=== PATIENT | female | born 1970 | race Caucasian/White ===

== ENCOUNTER 2019-07-25 09:00 | Outpatient (RCR) | payer OTHER, SELFPAY ==
--- NOTE | 2019-07-25 09:04 | BH.SGPN.GN ---
Behaviors/Verbalizations/Mental Status: []Client alert and oriented, casual dress, hygiene tended to. Eye contact good. Motor activity appropriate. Speech within normal limits. Affect congruent, mood anxious. Thoughts linear, logical, no signs of hallucinations or delusions. Reviewed client?s symptom tracker, no signs of suicidal ideation, plan, or intent as of today. Client Response/Progress/Benefit: []Pt was an active participant in group discussion, openly sharing thoughts and feelings, and appeared to listen attentively to others. Emotion for today is nervous and calm. Pt reported current stressors are being told by family that she overextends herself to accommodate others, which pt doesn't believe she is doing. Pt stated her family believes her taking care of others first was one of the causes to her going to inpatient psychiatric hospital. Pt noted reported a mental health positive is showing up to IOP despite feeling anxious. Pt reported another positive is working on being more assertive with others, instead of keeping her thoughts and feelings to herself. Pt's first day in IOP. Continued IOP tx recommended to stabilize moods, prevent decompensation, and identify and challenge distorted thoughts. Narrative Note: []
--- NOTE | 2019-07-25 10:09 | BH.SGPN.GN ---
Behaviors/Verbalizations/Mental Status: [Client alert and oriented, casually and neatly dressed and groomed. Eye contact good. Motor activity appropriate. Speech within normal limits. Affect congruent, flat, mood dysthymic. Thoughts linear, logical, no signs of hallucinations or delusions.] Client Response/Progress/Benefit: [Client was an active participant throughout, did well to engage via providing input, note-taking, and listening attentively to peers. The group discussed the quote and how the emotion anger is not good or bad, but one can respond to anger in healthy or harmful ways. Client worked with the group to define anger and its causes, as well as the internal and external impacts of anger. Provided personal example regarding how communication with her family is impacted negatively by anger. Group identified potential consequences of unhealthy management of anger to include: increased stress, loss of relationships, guilt/shame, more problems being created/potential dangerous situations, unhealthy coping habits, poor self-esteem, and worsening mental health symptoms. Client identified underlying factors of her anger which included: anxiety, feeling invalidated, feeling misunderstood, fear of judgement, and being overwhelmed/stressed. Client stated verbally lashing out, shutting down, avoidance, sarcasm, and self-deprecation are common responses she has when feeling angry. Benefited from group by increasing awareness of the negative impacts of unmanaged anger and underlying factors that contribute to personal anger. Progress noted as client reports increased self-awareness and ability to cope with stressors previously impacting mental health rather than minimizing or just shutting down. Will continue IOP tx to further increase consistent skill application and anxiety management, promote mood stability, and prevent decompensation.] Narrative Note: []
--- NOTE | 2019-07-25 11:15 | BH.SGPN.GN ---
Behaviors/Verbalizations/Mental Status: []Client alert and oriented, neatly dressed and groomed. Eye contact good. Motor activity appropriate. Speech within normal limits. Affect constricted, mood euthymic. Thoughts linear, logical, no signs of hallucinations or delusions Client Response/Progress/Benefit: []Client responded well to session, taking notes and participating in activity. Client participated in group activity and able to connect how managing anger takes patience, calming skills, and acceptance. Client reported using laughter helped client cope in the activity. Group identified the benefits of effectively managing anger which included; advocating for oneself, reducing consequences, reducing mental health symptoms, and expressing one?s needs. Client reported one can learn from past experiences to help them change how they respond to anger. Client helped the group identify coping skills to more effectively manage anger which included; deep breathing, self-compassion, taking a step back, DDD, challenging perspective, and using S.T.O.P. Client appeared to benefit from gaining coping skills to more effectively manage anger. Will continue IOP level of care to reduce depressive symptoms and improve mood stability.?
--- NOTE | 2019-07-25 15:06 | BH.COMM_ITS ---
Communication Note - Communication with Client Communication Note: Met with patient to complete intial paperwork. No sign ificant changes since pre-admission screening. Completed CSSR-screener which indicates low risk. Denies any suicidal ideations, plan, or intent. Reports passive thoughts prior to psych admission. Appears motivated. Protective factors. Smiling and cooperative.
--- NOTE | 2019-07-27 09:00 | BH.SGPN.GN ---
Behaviors/Verbalizations/Mental Status: [] Eye contact is good. Motor activity is appropriate. Appearance is neat. Speech is Appropriate. Mood is anxious. Affect is congruent. Thoughts are linear and logical. No evidence of psychosis. Reviewed daily check in sheet and no reports of suicidal ideations or intent. Client Response/Progress/Benefit: [] Pt participated at times during group discussion. Pt discussed improved communication with her family over the past couple days. Check-in was superficial however this is only her 2nd day. Reports that her first day was beneficial and she found everyone to be very friendly and non-judgemental. Progress noted. Benefited from group support, encouragement, and feedback. Will continue in IOP to prevent decompensation, provide support, and medication mgmt. Narrative Note: []
--- NOTE | 2019-07-27 10:03 | BH.SGPN.GN ---
Behaviors/Verbalizations/Mental Status: []Client alert and oriented, neatly dressed and groomed. Eye contact good. Motor activity appropriate. Speech within normal limits. Affect constricted, mood dysthymic. Thoughts linear, logical, no signs of hallucinations or delusions. Client Response/Progress/Benefit: []Client receptive of session, attentive in discussion and activity. Client discussed the quote and was often nodding to comments made by peers. Client helped group identify the consequences of not effectively managing emotions which included; strained relationships, guilt, increased negative thinking, increase mental health symptoms, and impulsive behaviors. Group identified barriers that impact one?s ability to communicate when emotions are high. These barriers included; acting on impulse, shutting down, physical aggression, assumptions, and misinterpretations. Client stated shutting down ?means nothing gets resolved.? Client participated in the activity and did well to regulate her emotions. Client reported she was fearful to take a role in the activity, but she reminded herself that ?I?m safe here.? Client appeared to benefit from increasing awareness of how emotions can impact communication and practicing in the moment coping skills. Will continue IOP tx to prevent decompensation of symptoms, improve daily functioning, and increase self-awareness.
--- NOTE | 2019-07-27 11:20 | BH.SGPN.GN ---
Behaviors/Verbalizations/Mental Status: []Client alert and oriented, neatly dressed and groomed. Eye contact good. Motor activity appropriate. Speech within normal limits. Affect congruent, mood euthymic. Thoughts linear, logical, no signs of hallucinations or delusions Client Response/Progress/Benefit: []Client attentive and contributing to discussion. Attentive during psychoeducation on 4 zones of regulation. Client able to identify how she feels in each zone as well as how she acts in each zone. Client identified when in the low energy zone she exhibits the following behaviors: increased sleep, increased smoking, complains more, crying, and increased negative self-talk. Client stated she knows she is in a regulated state when she is determined, takes pride in her appearance, feels refreshed, and feel ready to take the day on. Client shared she is in the heightened energy zone when she is less patient, quick to anger, increased negativity, restless, tense, increased rumination, increased worries, and ruminations. Client stated when in extremely heightened zone she loses control, starts more projects that she doesn't finish, and shuts down. Client also able to identify coping skills she can use to support herself in each zone which included: calling a friend, making lists, going for a walk, positive self-talk, breathing, and focusing on one task at a time. Benefited from group from increased education on zones of regulation or stages of alertness for emotions and healthy coping skills to use for each zone. Will continue IOP tx to maintain gains, prevent decompensation, and continue to learn and utilize healthy coping skills. Narrative Note: []
--- NOTE | 2019-07-27 15:20 | BH.MTP_ITS ---
[facility] Treatment Plan - Patient Information Program Physician:: Iveth Mayfield Primary Therapist:: Justina Brown - Psychiatric Diagnoses Psychiatric Diagnoses:: Schizoaffective disorder (F 25.0), anxiety disorder NOS Diagnosis Code(s):: F 25.0 - Estimated LOS Estimated LOS (in weeks):: 6 Problem/Goal #1 - Problem/Goal #1 Stated Goal:: Client will decrease depressive symptoms, isolation, and negative thinking due to Schizoaffective Disorder. Description of Barriers: Client reports a history of medication noncompliance and difficulty following through with her goals. Client states she has external support, but she struggles with utilizing internal coping skills. Client reports limited insight to her warning signs, triggers, and maintenance cycles. Client also reports low motivation, lack of energy, and isolative behaviors that could be a barrier to treatment. Functional Impact: Client is a 48-year-old female with a history of schizoaffective disorder and anxiety unspecified. Client has had several psychiatric hospitalizations with her most recent being at [facility] from 07/05/19-07/17/19. Prior to the hospitalization client had been presenting with symptoms of paranoid delusions and catatonia. Client was also presenting with disorganized thought patterns and confusion. Client endorsed erratic sleep, erratic appetite, and difficulty processing information. Client also reports she isolates and avoids. Additionally, client endorsed fleeting suicidal ideations without plan or intent, hopelessness, and increased irritability. Client's symptoms are currently impacting her ability to function at her baseline. Goal Relevant Strengths/Supports: Client presents as an intelligent, creative, and kind woman who wants to improve her mental health. 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 Client's family is supportive, and client has a best friend since middle school that she still talks to weekly. Client practices yoga and client reports receptiveness to learning new coping skills. - Objectives Objective #1 Stated Objective: Client will learn and utilize 2-3 healthy coping strategies to better manage depressive symptoms and reduce DSM-5 symptoms for depression. Interventions: Through group and individual sessions, therapist will help client identify triggers and warning signs of depression and emotional dysregulation including emotional, physical, and behavioral changes. Therapist will teach client various coping skills to manage her symptoms. Therapist will use cognitive restructuring techniques and help client gain awareness of negative thoughts that reinforce depressive cycles. Therapist will help client incorporate mindfulness, opposite action, and goal setting. Discharge Criteria: Client will have met this goal when she can report learning and using at least 2 coping skills to manage depressive symptoms and her DSM-5 scores for depression have decreased. Target Date: 09/05/19 Review Date: 08/24/19 Status: open Objective #2 Stated Objective: Client will increase social activity to at least one additional activity per week to increase social engagement and sense of purpose as well as reduce depressive symptoms as shown by a decrease in DSM-5 cross-cutt ing score. Interventions: Therapist will help client explore social connection opportunities, and process ways to get the most out of the experience. Therapist will help client set small weekly goals and encourage client to keep track of her progress. Therapist will provide education on maintenance cycles for depression and help client learn how to break unhealthy maintenance cycles. Discharge Criteria: Client will have achieved this objective when can report attending at least one social activity of interest weekly and her DSM-5 scores for depression have decreased. Target Date: 09/05/19 Review Date: 08/24/19 Status: open Problem/Goal #2 - Problem/Goal #2 Stated Goal:: Client will reduce overall frequency, intensity, and duration of paranoia and anxiety so that daily functioning is not impaired. Description of Barriers: Client reports a history of medication noncompliance and difficulty following through with her goals. Client states she has external support, but she struggles with utilizing internal coping skills. Client reports limited insight to her warning signs, triggers, and maintenance cycles. Client also reports low motivation, lack of energy, and isolative behaviors that could be a barrier to treatment. Functional Impact: Client is a 48-year-old female with a history of schizoaffective disorder and anxiety unspecified. Client has had several psychiatric hospitalizations with her most recent being at [facility] from 07/05/19-07/17/19. Prior to the hospitalization client had been presenting with symptoms of paranoid delusions and catatonia. Client was also presenting with disorganized thought patterns and confusion. Client endorsed erratic sleep, erratic appetite, and difficulty processing information. Client also reports she isolates and avoids. Additionally, client endorsed fleeting suicidal ideations without plan or intent, hopelessness, and increased irritability. Client's symptoms are currently impacting her ability to function at her baseline. Goal Relevant Strengths/Supports: Client presents as an intelligent, creative, and kind woman who wants to improve her mental health. 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 Client's family is supportive, and client has a best friend since middle school that she still talks to weekly. Client practices yoga and client reports receptiveness to learning new coping skills. - Objectives Objective #1 Stated Objective: Client will identify 2-3 anxiety and paranoia triggers and 2 healthy calming coping skills to use when feeling anxious to reduce anxiety as shown by decreased DSM-5 cross-cutting score. Interventions: Therapist will help client increase awareness of cognitive distortions, paranoia triggers, and physical warning signs of anxiety. Therapist will encourage client to focus on stressors in her control and teach client calming and mindfulness techniques. Therapist will CBT-based strategies to help client learn how to more effectively manage and cope with her anxiety and paranoia. Therapist will encourage client to utilize reality checking with her supports when she is feeling paranoid. Discharge Criteria: Client will have accomplished this goal when can report at least 2 triggers for anxiety and state using 2 calming strategies to manage symptoms. Additionally, client will have accomplished this goal when her DSM-5 cross-cutting scores show a decrease in anxiety. Target Date: 09/05/19 Review Date: 08/24/19 Status: open Objective #2 Stated Objective: Client will identify 2-3 cognitive distortions that lead to rumination and learn 2-3 ways to manage these thoughts to better manage anxiety. Interventions: Therapist will provide education on the most common cognitive distortions and teach client the connection between thoughts, emotions, and feelings. Therapist will assist client in identifying, challenging, and replacing dysfunctional thoughts with positive, more realistic thoughts. Therapist will use CBT and DBT techniques to help client gain awareness of thinking errors and learn how to more effectively handle negative thoughts. Discharge Criteria: Client will have accomplished this goal when can identify at least 2 cognitive distortions and at least 2 coping skills to manage negative thoughts. Target Date: 09/05/19 Review Date: 08/24/19 Status: open
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
--- NOTE | 2019-07-27 15:27 | BH.MDN ---
Multi-Disciplinary Note - Note 30-min Individual Time Started:: 12:30 Date: 07/27/19 Purpose of session/treatment goals addressed:: The purpose of this session was to gather information on client's current stressors, symptoms, and treatment goals. Another goal was to build rapport. Eye Contact:: Good Motor Activity:: Appropriate Appearance:: Neat Speech:: Appropriate Mood:: Anxious Affect:: Constricted Thoughts:: Linear, Logical, No evidence of hallucinations/delusions noted Staff Interventions:: Therapist used active listening and open-ended questions to explore client's current stressors, symptoms, and treatment goals. Therapist used strengths perspective to build rapport and help client identify personal resilience factors. Therapist provided psychoeducation on maintenance cycles and depression. Client Response:: Client responded well to session, receptive to meeting with therapist. Client shared her first week of IOP went well, she states feeling ?open and hopeful.? Client stated she was recently hospitalized, but she is starting to feel better. Client declined to go into detail about what precipitated her hospitalization, but she reported she is currently struggling with depressive symptoms. Per client?s H/P she has a history of paranoid delusions and catatonia. Client does not present with those symptoms currently. Client reported she gets stuck in ?patterns? of depression and she wants to work on preventing those from happening as frequently. Client stated she wants to improve her boundaries with others, increase self-care, and learn better ways to cope with her mental health symptoms. Client receptive to psychoeducation on depressive maintenance cycles. Risks/Concerns:: Client denies any suicidal ideations, plan, or intent as of 07/27/19. Future oriented throughout session. Progress Toward Goals/Plan:: Client's second day in IOP, no progress to document. Client reports she is open to the program and feels hopeful. Client currently endorses a depressed mood, anhedonia, difficulty concentrating, and difficulty processing information. History of paranoid delusions and catatonia, but no current presentation of symptoms. Client identified her treatment goals to be better boundaries at home, reducing depressive symptoms and maintenance cycles, and better self-care. Will continue tx to prevent further decompensation, improve daily functioning, and increase healthy coping skills. Time Stopped:: 12:50
--- NOTE | 2019-07-31 09:01 | BH.SGPN.GN ---
Behaviors/Verbalizations/Mental Status: []Client alert and oriented, casual dress, hygiene tended to. Eye contact good. Motor activity appropriate. Speech within normal limits. Affect congruent, mood anxious. Thoughts linear, logical, no signs of hallucinations or delusions. Reviewed client?s symptom tracker, no signs of suicidal ideation, plan, or intent as of today. Client Response/Progress/Benefit: []Pt was an engaged participant in group discussion, providing input and openly processing with the group. Emotion for today is trepidatious. Pt reported current stressor is being unsure if her medication is causing her to be sleepy or if she is using it as an excuse to stay in bed. Pt stated she stayed in bed for 15 hours on Tuesday because felt fatigued all day and struggled with getting out of bed. 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 Pt stated her encouraged her to go to hockey last night and she reminded herself how it will improve her mood. Progress noted in application of positive self-talk to manage depressive thought patterns. continued IOP tx recommended to stabilize moods, prevent decompensation, and learn healthy coping skills. Narrative Note: []
--- NOTE | 2019-07-31 10:13 | BH.SGPN.GN ---
Behaviors/Verbalizations/Mental Status: []Client alert and oriented, neatly dressed and groomed. Eye contact good. Motor activity appropriate. Speech slow. Affect flat, mood depressed. Thoughts loosely associated at times. No signs of hallucinations or delusions. Client Response/Progress/Benefit: []client engaged throughout group discussion and activity. Contributed to discussion on quote of the day as she shared ?we need the manifestation of change.? Client asked the group ?how do we know if we grow?? The group helped client gain awareness of the benefits of goal setting and reflection to measure growth. Group worked together to come up with common negative forces in life which can hold them back from growth. These included; toxic relationships, negative thoughts, cognitive distortions, lack of self-care, and trauma. Group then worked together to identify common positive forces which help us grow. These included; healthy coping skills, positive support, self-care, patience, realistic and positive thinking, and self-awareness. Client was attentive during psychoeducation on the importance of utilizing many forces to help one grow. Benefited from group with increased insight and awareness on the impact of negative and positive forces on mental wellness.
--- NOTE | 2019-08-01 08:43 | BH.COMM_ITS ---
Communication Note - Communication with Client Communication Note: Was scheduled to see psychiatry today however was unable to make it in to [facility]. Pt saw outpatient psychiatrist Dr. Aguayo on 07/20/19 and was recent seen by psychiatry while at [facility] within 30 days. No immediate concerns for medication.
--- NOTE | 2019-08-02 09:10 | BH.SGPN.GN ---
Behaviors/Verbalizations/Mental Status: [] Eye contact is good. Motor activity is appropriate. Appearance is casual. Speech is Appropriate. Mood is depressed. Affect is flat. Thoughts are linear and logical. No evidence of psychosis. Reviewed daily check in sheet and no reports of suicidal ideations or intent. Reviewed daily symptom tracker. Client Response/Progress/Benefit: [] Pt was an active participant in group discussion. Emotion for today is adequate. Talked at length about boundary setting with family. Gave several examples and believes that she is currently more assertive with others and is pushing back. Often she feels pressured to shared her thoughts and she does not want to disclose what has been occurring in the past month with certain family members. Progress noted. Benefited from group support, feedback, and encouragement. Will continue in IOP to prevent decompensation, increase healthy coping, and provide support. Narrative Note: []
--- NOTE | 2019-08-02 10:10 | BH.SGPN.GN ---
Behaviors/Verbalizations/Mental Status: []Client alert and oriented, neatly dressed and groomed. Eye contact good. Motor activity appropriate. Speech within normal limits. Affect constricted, mood anxious. Thoughts linear, logical, no signs of hallucinations or delusions. Client Response/Progress/Benefit: []Client active participant as shown by client?s attentiveness during discussion and engagement in activity. Client agreed with peers that self-care is important because without it one cannot effectively give to others or function at baseline. Client reported having time for herself would make her feel uncomfortable, but she was able to see the long-term benefits of self-care. Client attentive in the discussion of the common myths about self-care including self-care is selfish, self-indulgent, take too much time, and is always fun. Client gave examples of self-care activities such as setting boundaries, taking medication, going to therapy, and admitting one needs help. Client engaged in activity and able to connect how sometimes to make self-care a priority, a person must set boundaries in other areas of their lives. Client seemed to benefit from increased awareness of the importance of self-care. Client showing progress as shown by her report of increased insight and gaining skills. Continues to struggle with managing symptoms and setting boundaries.
--- NOTE | 2019-08-02 11:15 | BH.SGPN.GN ---
Behaviors/Verbalizations/Mental Status: [Client alert and oriented, neat and casually dressed and appropriately groomed. Eye contact good. Motor activity appropriate. Speech within normal limits, at times rambling. Affect congruent, mood depressed. Thoughts linear, logical, no signs of hallucinations or delusions. ] Client Response/Progress/Benefit: [Pt responded well to session, actively listening and willing participant in both discussion and worksheet activity. Worked with the group to further process the activity and discussion on the importance of self-care in management mental health and preventing burnout. Pt engaged in the discussion and self-assessment of the different areas of self-care, noting she has struggled with physical and emotional components of self-care and has previously stopped taking her medications or avoided healthy activities out of stubbornness or not wanting to have to take them. Pt reports connecting with discussion on the mental health effects of not making self-care a priority. Pt set a goal to improve in the area of psychological and social self-care by improving knowledge of and ability to use healthy communication skills with supports. Pt appeared to benefit from increasing awareness of how she can improve self-care balance. Pt progress noted in pt ability to identify impact current lack of self-care activities has had on mental health and maintaining depression. Recommended continued IOP to continue to reduce depression, improve emotion regulation and self-care skills, and prevent decompensation.] Narrative Note: []
--- NOTE | 2019-08-03 09:02 | BH.SGPN.GN ---
Behaviors/Verbalizations/Mental Status: []Client alert and oriented, casual dress, hygiene tended to. Eye contact good. Motor activity appropriate. Speech within normal limits. Affect constricted, mood dysthymic and anxious. Tangential at times, easily redirected. No signs of hallucinations or delusions. Reviewed client?s symptom tracker, no signs of suicidal ideation, plan, or intent as of today. Client Response/Progress/Benefit: []Pt was an engaged participant in group discussion, providing input and listened attentively to peers. Emotion for today is discombobulated. Pt initially struggled with identifying mental health positive or progress. With assistance pt noted mental health positive as changing her routine this morning to engaging with pets instead of ruminating until someone else in the house wakes up. Pt stated she could recognize her mood was improved by using positive distraction instead of sitting around doing nothing until others woke up. Pt reported current stressor is feeling discombobulated because has several upcoming doctor appointments which she stated increases her anxiety at times. Progress noted in application of using opposite action this morning instead of doing the same behavior that has maintained depressed state. Continued IOP tx recommended to maintain gains, prevent decompensation, and continue to improve emotion regulation skills. Narrative Note: []
--- NOTE | 2019-08-03 10:18 | BH.SGPN.GN ---
Behaviors/Verbalizations/Mental Status: [Client alert and oriented, neat and casual dress, hygiene tended to. Eye contact good. Motor activity appropriate. Speech within normal limits, at times rambling. Affect congruent, mood euthymic. Thoughts linear, logical, no signs of hallucinations or delusions. ] Client Response/Progress/Benefit: [Pt receptive of session, engaged throughout. She did well to work with the group to reflect on the quote and discussed the ways in which perspective can impact mental health and ability to make personal progress in life. Pt indicated that individual attitude and culture can impact perspective and lead to increased negativity. Expressed that a positive perspective can reduce use of self-deprecating or negative thoughts. Pt did well to engage in the challenge activity and was an active participant in identifying how perspective impacted ability to complete the task at hand. Pt appeared to benefit from increasing understanding of mental health benefits of a positive perspective and potential consequences to progress when perspective is negative or pessimistic. Pt progress noted in her ability to better manage stressors and report of increased socialization. Recommended continued IOP tx to promote continued progress, further promote application of skills learned, and prevent decompensation.] Narrative Note: []
--- NOTE | 2019-08-03 11:15 | BH.SGPN.GN ---
Behaviors/Verbalizations/Mental Status: []Client alert and oriented, neatly dressed and groomed. Eye contact good. Motor activity appropriate. Speech within normal limits. Affect flat, mood irritable. Thoughts linear, logical, no signs of hallucinations or delusions. Client Response/Progress/Benefit: []Client responded well to session, attentive and participating in discussion. Group discussed the mental health benefits of recognizing strengths which included; improved self-esteem, better relationships, and increased resilience. Client reported knowing her strengths helps client be more optimistic. Group identified the barriers that have prevented them from acknowledging their strengths and successes. These barriers included; negative thoughts, self-depreciation, mistaken beliefs, and not feeling allowed to acknowledge strengths. Group identified strategies to overcome barriers that prevent them from seeing strengths. These strategies included; keeping track of progress, practicing self-compassion, and challenging distortions. Client able to identify personal strengths she possesses which included; being open-minded, patience, and being curious. Appeared to benefit from recognizing personal strengths and identifying strategies to overcome barriers. Will continue IOP tx to prevent decompensation, increase use of healthy coping skills, and promote medication compliance.
--- NOTE | 2019-08-03 13:57 | BH.MDN ---
Multi-Disciplinary Note - Note 45-min Individual Time Started:: 12:15 Date: 08/03/19 Purpose of session/treatment goals addressed:: The purpose of this session was to gather information on client's current stressors, symptoms, and triggers. Another goal was to provide psychoeducation on symptoms and teach client coping skills. Other topics included; support and communication. Eye Contact:: Good Motor Activity:: Appropriate Appearance:: Neat Speech:: Tangential, Other - slow speech Mood:: Euthymic Affect:: Congruent Thoughts:: Other - loose associations at times., No evidence of hallucinations/delusions noted Staff Interventions:: Therapist used active listening and open-ended questions to gather information on client?s current stressors, symptoms, and triggers. Therapist explored symptoms that are causing client the most distress and helped client identify healthy coping skills to better manage these symptoms. Therapist provided psychoeducation on depression and maintenance cycles. Therapist discussed the benefits of communicating with support. Therapist gave client homework to fill out a coping skill tracker. Client Response:: Client responded well to session, open to meeting with therapist. Client shared she looks forward to meeting with the psychiatrist because she continues to feel restless. Client reported she is also struggling with racing thoughts and not knowing what to do to stay busy. Client shared when this happens, she tends to isolate and sleep which reinforces her depression. Client receptive to psychoeducation on symptoms and maintenance cycles. Client reported she currently only uses distraction coping skills to manage her depression and restlessness. Client shared this helps some of the time because it gives her a sense of accomplishment, but it does not solve my problems. Client receptive to learning different types of coping skills besides distraction such as emotional release, self-love, thought challenging, and mindfulness. Client willing to use a coping skill tracker over the weekend to help client see how different coping skills impact her mood. Client also shared she wants to communicate better with her supports to avoid distorted thoughts and unfair assumptions about client's mental health. Risks/Concerns:: Client denies any suicidal ideations, plan, or intent as of 08/03/19. Progress Toward Goals/Plan:: Client appears to be demonstrating progress as evidenced by her report of increased awareness and report of medication compliance. Client reports current symptoms of increased restlessness and fatigue. Client stated over the weekend she slept for 15 hours one day. Client also reports difficulty concentrating, anhedonia, and poor internal emotional regulation skills. Will continue tx to prevent further decompensation, improve daily functioning, and increase healthy coping skills. Time Stopped:: 12:56
--- NOTE | 2019-08-07 09:02 | BH.SGPN.GN ---
Behaviors/Verbalizations/Mental Status: []Client alert and oriented, neatly dressed and groomed. Eye contact good. Motor activity appropriate. Rambling speech. Affect congruent, mood anxious. Thoughts circular no signs of hallucinations or delusions. Reviewed client?s symptom tracker, no risk for suicidal ideation, plan, or intent as of 08/07/19. Client Response/Progress/Benefit: []Client responded well to session, engaged and providing supportive statements to peers. Client reports feeling ?ambivalent? today. Client reported her place of employment may be closing due to lack of funding, so client may have to find a new job. Client shared she does not know what she would want to do ?but I want it to have purpose, not just a paycheck.? Client able to acknowledge that she has various skills that can benefit her in the workforce. Client reported even though there?s uncertainty with her job, the community has been very supportive which gives client hope. Client stated she has started journaling again which has been helpful for her mental health. Client appeared to benefit from connecting with peers and processing her ambivalence. Client progressing as shown by her decreased paranoia, however, client continues to struggle with apathy and other depressive symptoms. Will continue IOP tx to prevent decompensation and increase application of healthy coping skills.
--- NOTE | 2019-08-07 10:10 | BH.SGPN.GN ---
Behaviors/Verbalizations/Mental Status: [] Eye contact is good. Motor activity is appropriate. Appearance is casual. Speech is Appropriate. Mood is depressed. Affect is flat. Thoughts are linear and logical. No evidence of psychosis. Client Response/Progress/Benefit: [] Pt was an active participant in group activity, however did not provide much insight during discussion. Pt was quiet however attentive when peers came up with a definition for coping which was how we deal with problems that we encounter. Group noted that coping skills can be healthy and unhealthy. Quiet but attentive as group worked together to identify unhealthy coping skills which included; substance abuse, avoiding, isolating, lashing out, self-harm, over-thinking, spending money, eating, and escaping reality through TV/games. Group began to identify ways to break the cycle of unhealthy coping skills which included; awareness, addressing issues, and learning healthy ways to cope. Pt was an active participant in her small group Narrative Note: []
--- NOTE | 2019-08-07 11:15 | BH.SGPN.GN ---
Behaviors/Verbalizations/Mental Status: []Pt alert and oriented, eye contact good, casually dressed, motor activity appropriate, speech normal rate and tone, mood dysthymic, constricted affect, thoughts linear and intact, no evidence of delusions or hallucinations. Client Response/Progress/Benefit: []Client listened attentively to peers and contributed thoughts during discussion. Client appeared to connect with the activity from second group and helped the group identify benefits of having a strong foundation of internal and external coping skills. Client helped the group discuss the different categories of coping skills and provided examples. Client agreed with peers it's important to use variety of coping skills. Client created a coping skills ?menu? from the five categories of coping skills. Client selected pampering self, self-care, and challenging thoughts as her coping skills to try. Client appeared to benefit from increasing her repertoire of healthy coping skills. Progress noted in client?s ability to challenge negative thought patterns. Will continue IOP to promote gains, mood stability and prevent decompensation. Narrative Note: []
--- NOTE | 2019-08-07 14:04 | BH.MDN_ITS ---
Multi-Disciplinary Note - Note 45-min Individual Time Started:: 12:20 Date: 08/07/19 Purpose of session/treatment goals addressed:: The purpose of this session was to address client's current symptoms, stressors, and application of coping skills. Another goal was to challenge negative thinking that reinforces depressive maintenance cycles. Other topics included; self-care and habit- stacking. Eye Contact:: Good Motor Activity:: Appropriate Appearance:: Neat Speech:: Tangential, Rambling Mood:: Dysthymic Affect:: Congruent Thoughts:: Circular, No evidence of hallucinations/delusions noted Staff Interventions:: Therapist used active listening and open-ended questions to explore client's current stressors, symptoms, and triggers. Therapist provided psychoeducation and helped client gain awareness of how her behaviors impact her emotions. Therapist taught client about habit-stacking and helped client set a goal to incorporate yoga into her morning routine. Therapist gently challenged client's distortions and reframe her thinking. Client Response:: Client responded well to session, receptive to meeting with therapist and being redirected at times. Client stated she is feeling a little low today as she continues to experience low motivation and restlessness. Client reported right now she is coping with her restlessness by laying on the couch which makes client feel guilty. Client able to recognize that her guilt then reinforces depression and low motivation. Receptive to psychoeducation and identifying alternative approaches to coping with her restlessness. Client reported she finds benefits from yoga, but she is not consistent with doing yoga. Client identified her barriers preventing client from being consistent which included; interruptions, guilt, and time. Client able to problem solve her barriers and habit-stacking. Client shared doing yoga as part of her morning routine would be a good option as she would have the time and feel less guilty. Client and therapist discussed the benefits of opposite action and creating positive momentum. Risks/Concerns:: Client denies any suicidal ideations, plan, or intent as of 08/07/19. Future oriented throughout session. Progress Toward Goals/Plan:: Client appears to be demonstrating progress as evidenced by her report of medication compliance and increased awareness of how her behaviors impact emotions. However, client reports difficulty with consistently applying coping skills and she did not complete homework from last session. Client continues to report restlessness, low motivation, and fatigue. Client acknowledges that isolating and sleeping only reinforces her low motivation. Client receptive to habit stacking and trying to do yoga in the mornings to promote more consistent application. Will continue tx to prevent further decompensation, improve daily functioning, and increase healthy coping skills. Time Stopped:: 13:12
--- NOTE | 2019-08-08 09:40 | BH.NA ---
Physical Data - Height/Weight Height: 1.69 m Weight:: 95.254 kg Weight in Pounds: 210.0 lbs Current Medication Compliance - Medication Compliance Do you take your medication as prescribed?: Yes Do you need assistance with taking medication?: No Have you had side effects from medication?: No Nutritional History - Appetite Nutritional Instructions:: If client shows signs of a swallowing problem, weight change of 10 pounds or more in the last month, or is on a diabetic diet, the physician will review and request a dietitian consult, as appropriate. All unintentional weight loss will be referred to the physician for decision on need for dietitian consult. Describe your appetite:: Good Have you noticed a change in your eating habits lately?: No Functional Assessment - Sleep Pattern Describe any problems with sleeping: Client describes her sleeping as widely variable; sometimes has difficult falling and staying asleep, other times she can sleep for 16 hours straight. - Activities Motor Activity:: Functional Sensory/Communication Assess - Hearing Problems Do you have any hearing problems?: Adequate - Communication Problems Do you have difficulty understanding what people are saying?: No Do you have trouble putting your thoughts into words or expressing what you want to say?: No Do people ever have trouble understanding what you say?: No What is your primary language?: Serbian Learning Assessment - Learning Barriers Learning Barriers:: Ready to learn Medical Problems/History - Pain Assessment Do you have acute or chronic pain?: No - Female Reproductive Do you think you may be ?: No Number of pregnancies:: 4 Number of children:: 4 Have you reached menopause?: No Do you have any history of breast disease?: No Substance Abuse - Substance Abuse Please describe substance abuse in the last 30 days:: Occassional ETOH use. 1ppd cigarette smoker. Past marijuana use. Mental Status Summary - Mental Status Significant Findings/Observations on Appearance and Mood:: Hien is A&Ox4, cooperative with interview, and makes fair eye contact. Speech is clear, monotone, and of normal volume. Mild anxiety and depression. Flat affect. Often makes strange, off-topic comments, but is redirectable. No symptoms of delusions. Unclear of hallucinations. Denies SI and HI. Interview was difficult given client's tendency to derail from the topic or line of questioning. Suicide Assessment - Suicidal Ideation Are you currently or have you been suicidal in the past?: Yes Suicidal Intentional Rating Scale (SIRS): Suicidal thoughts (past) Physician Notification: If Active suicidal thoughts/Will not contract for safety is checked, contact physician and document in the Physician Notification section below. Past Psychiatric History - MH Treatment Hx ECT Therapy Details:: N/A Describe (age, circumstance, etc) any past hospitalizations: Client was just at [facility] from 07/05/19-07/17/19 for paranoid delusions and catatonia. Fall Risk Assessment - Age Age: Less than 60 - Mental Status Mental Status: Willing & able to ask for assistance when needed - Physical Status Physical Status: No problems - Impairments Impairments: None - Elimination Elimination: Continent AND independent - Gait or Balance Gait or Balance: Walks independently - Hx of Falls History of falls in the past 6 months: No known history - Medications/Substances Psychotropics:: Antidepressants, Antipsychotics, Anxiolytics (e.g. benzodiazepines), Anticholinergics (e.g. benztropine) Medications/substances used within the past 24 hours or ordered to administer: 3 or more of the medications/substances listed above - Total Score Total Points:: 2 RN Summary of Impressions - Impressions Recommendations: Include psychiatric and medical issues, treatment planning recommendations, and discharge planning needs. Impressions: Psychiatric Issues: schizoaffective disorder - Level of Care How do the client's current symptoms and functional deficits support need for this level of care?: Hien was recently discharged from a 12-day inpatient stay at [facility]. Prior to that, she notes a decompensation in her mental health symptoms since February 2019. She is not able to verbalize her symptoms or stay on topic at the time of this interview, but denies SI. Client does endorse irritability and anger issues resulting in her shutting down. IOP will provide social support, structure, and skills trainging to promote gains and prevent further decompensation.
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
--- NOTE | 2019-08-08 12:45 | BH.DR.ITP ---
Initial Treatment Plan - Patient Information Visit Information: ADMISSION DATE: EXPECTED LOS: 4-6 weeks - Problems/Symptoms Problem #1:: Depression Symptom:: sadness, decreased concentration, rumination Problem #2:: Anxiety Symptom:: worry, rumination
--- NOTE | 2019-08-09 09:10 | BH.SGPN.GN ---
Behaviors/Verbalizations/Mental Status: [] Eye contact is good. Motor activity is appropriate. Appearance is neat. Speech is Appropriate. Mood is depressed/irritable. Affect is flat. Thoughts are linear and logical. No evidence of psychosis. Reviewed daily check in sheet and no reports of suicidal ideations or intent. Client Response/Progress/Benefit: [] Pt participated at times during the group discussion. Attentive. Pt states last night was rough. Noted some avoidance and isolation after having several weeks of feeling stable. Group provided support and encouragement. Group provided feedback regarding progress not being linear and that at times one can learn from regression. She reports that she is focusing on others and not herself. She did not elaborate on this. At one point she also mentioned at times I can be medication resistant or feel that she may not need to take medications. Group and therapist discussed the right ways and wrong ways to stop medications and the repercussions. Benefited from group support and encouragement. Will continue in IOP to prevent decompensation and provided support. Narrative Note: []
--- NOTE | 2019-08-09 10:10 | BH.SGPN.GN ---
Behaviors/Verbalizations/Mental Status: []Client alert and oriented, neatly dressed and groomed. Eye contact good. Motor activity appropriate. Speech within normal limits. Affect constricted, mood dysthymic. Thoughts linear, logical, no signs of hallucinations or delusions. Client Response/Progress/Benefit: []Client responded well to session, attentive and providing occasional input. Client connected with the group topic of crisis and did well to work with group to define crisis. Client identified examples of potential crisis to include emergencies, hardships, and . Connected with discussion on how coping with external crisis by using unhealthy coping skills could lead to personal crisis. Group identified unhealthy coping skills to include; substances, isolation, impulsive behaviors, yelling, and pushing people away. Group identified warning signs for crisis which included; increased sleep, irritability, decreased appetite, and negative thoughts. Client completed the personal warning signs worksheet and identified crisis warning signs to include; feeling disconnected, loss of motivation, and apathy. Benefited from group by increasing awareness of crisis and personal warning signs. Progress noted as client reports reduced paranoia, but she continues to struggle with managing her depressive symptoms. Will continue IOP tx to reduce isolative behaviors and improve mood. Narrative Note: []
--- NOTE | 2019-08-10 09:03 | BH.SGPN.GN ---
Behaviors/Verbalizations/Mental Status: []Client alert and oriented, neatly dressed and groomed. Eye contact good. Motor activity appropriate. Speech within normal limits. Affect congruent, mood agitated. Thoughts linear, logical, no signs of hallucinations or delusions. Reviewed client?s symptom tracker, no risk for suicidal ideation, plan, or intent as of 08/10/19. Client Response/Progress/Benefit: []Client responded well to session, off topic at times, but well engaged. Client reports feeling ?restless? today. Client shared she historically struggling with channeling her restless energy and that she feels frustrated for not remembering to bring something to group. However, despite restlessness, client reported several mental health wins. Client shared she cooked dinner last night and she and her did not have any arguments. Client also did not isolate yesterday, she took her dog on a walk instead. Client reported when she uses opposite action, she is able to break out of depressive cycles more effectively. Client appeared to benefit from reflecting on her application of opposite action. Will continue IOP as client has made gains with applying coping skills, but she continues to report difficulty with long-term consistency and maintenance.
--- NOTE | 2019-08-10 10:17 | BH.SGPN.GN ---
Behaviors/Verbalizations/Mental Status: []Client alert and oriented, casually dressed and groomed. Eye contact fair. Motor activity appropriate. Speech within normal limits. Affect congruent to topic being discussed, mood dysthymic. Thoughts linear, logical, no signs of hallucinations or delusions. Client Response/Progress/Benefit: []Client responded well to session, attentive and participating in small group discussion. Group identified the benefits to setting boundaries as well as the consequences of not setting healthy boundaries. Client stated she became the door mat when she didn't set boundaries. Client engaged during discussion of the different types of boundaries and engaged in the self-assessment activity. Client stated sometimes lack awareness that you are not setting healthy boundaries until someone else points it out. Client able to recognize her own mental health suffers when she does not set boundaries. Client seemed to benefit from increased awareness how poor boundaries can negatively impact mental health. Client to continue IOP tx to continue use of healthy coping skills, prevent decompensation, and maintain gains. Narrative Note: []
--- NOTE | 2019-08-10 11:22 | BH.SGPN.GN ---
Behaviors/Verbalizations/Mental Status: [Client alert and oriented, neat and casual dress, hygiene appropriate. Eye contact good. Motor activity appropriate. Speech within normal limits. Affect congruent, mood dysthymic. Thoughts linear, logical, no signs of hallucinations or delusions. ] Client Response/Progress/Benefit: [Pt responded well to session, active participant and willing to provide insight throughout. Pt did well to engage in the boundary self-assessment activity and worked with group to further process. Pt discussed that she has been becoming much more aware of how fear of being judged or rejected has impacted personal ability to set boundaries. Pt appeared to benefit from group discussion on strategies for further improving personal boundaries. Identified wanting to improve her ability to set and maintain healthy personal and emotional boundaries, specifically in regard to being able to say ?no? to others and asking for what she needs. Progress noted in pt ability to identify impact of current boundaries on mental health progress and relationships. Client recommended to continue IOP treatment in order to maintain gains made, improve emotion regulation, and continue to promote healthy change behaviors.] Narrative Note: []
--- NOTE | 2019-08-14 09:00 | BH.SGPN.GN ---
Behaviors/Verbalizations/Mental Status: [] Eye contact is good. Motor activity is appropriate. Appearance is casual. Speech is Appropriate. Mood is depressed. Affect is flat. Thoughts are linear and logical. No evidence of psychosis. Reviewed daily check in sheet and no reports of suicidal ideations or intent. Client Response/Progress/Benefit: [] Pt participated at times during group discussion. Emotion for today is serenity. Shared that she has some dental work done yesterday. In the past she would have felt pressured or obligated to get stuff done like house work however used the time after to complete some self-care and rest. Talked about the MH and physical benefits of self-care and relax. Talked feeling like she is wasting time when she does self-care believing that she should be getting stuff done. Group challenged this belief. Also spent time with support over the weekend. Improved mood from last week. Progress noted. Benefited from group support, encouragement, and feedback. Will continue in IOP to prevent decompensation, provide support, and increase healthy coping. Narrative Note: []
--- NOTE | 2019-08-14 10:08 | BH.SGPN.GN ---
Behaviors/Verbalizations/Mental Status: []Client alert and oriented, neatly dressed and groomed. Eye contact good. Motor activity appropriate. Speech within normal limits. Affect congruent, mood euthymic. Thoughts linear, logical, no signs of hallucinations or delusions. Client Response/Progress/Benefit: []Client was an active participant and positively contributed to discussion. Client appeared to connect with the quote as she commented ?often times we look at goals as all or nothing which keeps us stagnant.? Client worked together with group to define goals and identify the benefits of developing goals which included; improving self-confidence, gaining a sense of accomplishment, gaining a sense of purpose, increased motivated/productivity, and better mental health. Client reported she has a hard time setting goals and sticking to them. Group also identified barriers to setting and accomplishing goals which include; fear, unrealistic expectations, lack of follow through, and not knowing where to start. Attentive during education on developing SMART goals. Benefited from increasing awareness of goal-setting methods and practicing goal setting. Progress noted as client reports improved mood today and application of self-care over the weekend. Will continue IOP tx to promote mood stability and increase consistent use of healthy coping skills.
--- NOTE | 2019-08-14 11:13 | BH.SGPN.GN ---
Behaviors/Verbalizations/Mental Status: [Client alert and oriented, casually dressed and neatly groomed. Eye contact good. Motor activity appropriate. Speech within normal limits. Affect flat, mood euthymic. Thoughts linear, logical, no signs of hallucinations or delusions. ] Client Response/Progress/Benefit: [Pt attentive throughout and actively engaged in discussion regarding SMART goal setting. Pt engaged in creating own mental health SMART goal. Identified goal as: ?Wait no longer than 30 minutes when planning to meet with someone and they are late?. Pt reported this goal will benefit her by improving her ability to advocate for herself and set healthy boundaries. Pt identified potential barriers to accomplishing goal to include: others not respecting her boundaries, time management, unexpected time delays? . Pt reported she will overcome barriers by ??communicating the plan and sticking to convictions?, ?don?t cram too much into one day?, ?allow for more time in between appointments?, and ?consulting schedule more often?. Pt seemed to benefit from identifying a SMART goal and coming up with strategies to overcome potential barriers. Progress noted in pt ability to create a small relevant goal aimed at improving mental health symptoms and preventing additional stressors within relationships with supports. Pt to continue IOP to increase healthy coping skills, improve self-advocacy and healthy boundaries, and prevent decompensation.] Narrative Note: []
--- NOTE | 2019-08-16 09:06 | BH.SGPN.GN ---
Behaviors/Verbalizations/Mental Status: [Client alert and oriented, neat and casual dress, hygiene appropriate. Eye contact good. Motor activity appropriate. Speech within normal limits. Affect flat, mood dysthymic. Thoughts linear, logical, no signs of hallucinations or delusions. Reviewed client?s symptom tracker, no signs of suicidal ideation, plan, or intent as of today. ] Client Response/Progress/Benefit: [Pt was an active participant in group discussion, providing input and openly processing frustrations with the group. Emotion for today is pal as pt indicated finding the weather outside to be a small moment of lionel for her this morning. She went on to indicate frustration regarding her relationship with her . Pt further explained feeling he has primarily taken on a caregiver role and she feels they have grown distant in their relationship romantically. Appeared to benefit from support of the group and worked to identify ways she could communicate her concerns with her . Reports difficulties in identifying mental health wins, though with assistance able to do so. Current wins include increased insight regarding triggers for depression/loneliness, as well as using her pets as a means of coping in moments when she is feeling lonely or disconnected from supports. Progress noted in pt ability to actively apply self-soothing skills outside of tx environment. Continued IOP tx recommended to improve application of healthy coping skills, increase consistent communication with supports, and prevent decompensation. ] Narrative Note: []
--- NOTE | 2019-08-16 10:12 | BH.SGPN.GN ---
Behaviors/Verbalizations/Mental Status: []Client alert and oriented, neatly dressed and groomed. Eye contact good. Motor activity appropriate. Speech within normal limits. Affect congruent, mood euthymic. Thoughts linear, logical, no signs of hallucinations or delusions. Client Response/Progress/Benefit: []Client was an active participant during session, connecting to the quote and peers. Group discussed the MH benefits to having open and clear communication with support and providers. Client reported effective communication positivity impacts one?s mental health and relationships. Client stated perspective can be a big barrier to effective communication. Group discussed the barriers that tend to impact clear and open communication which include: fear, negative thinking, unregulated emotions, poor body-language, and tone of voice. Client was attentive during psycho-education on communications styles (aggressive, passive, passive-aggressive, and assertive). Also contributed to the pros and cons to each communication style. Client seemed to benefit from increased insight on how the way she communicates impacts her mental health. Progress noted as client reports utilizing more self-care, but she continues to struggle with consistent application of healthy coping skills. Will continue IOP tx to prevent decompensation and improve mood stability. Narrative Note: []
--- NOTE | 2019-08-16 11:16 | BH.SGPN.GN ---
Behaviors/Verbalizations/Mental Status: []Client alert and oriented, neatly dressed and groomed. Eye contact good. Motor activity appropriate. Speech within normal limits. Affect congruent, mood euthymic. Thoughts linear, logical, no signs of hallucinations or delusions. Client Response/Progress/Benefit: []Client active participant AEB her attentiveness during discussion and engagement in activity. Client reported she is mostly a passive-aggressive communicator. Client reported this communication style causes negative consequences ?because I?m not direct with people I just expect them to know.? Client shared this increased tension in her relationships. Client participating during the activity and able to connect how ineffective communication negatively impacts mental health and relationships. Client identified her communication goal which is to practice being specific with her family, so they do not have to guess what client needs. Client seemed to benefit from increased insight into how her communication style impacts her mental health and relationships. Client progressing as shown by her report of increased self-awareness and implementation of self-care strategies. Will continue IOP tx to promote more effective communication with supports and increase mood stability. Narrative Note: []
--- NOTE | 2019-08-16 14:46 | BH.MDN ---
Multi-Disciplinary Note - Note 45-min Individual Time Started:: 12:37 Date: 08/16/19 Purpose of session/treatment goals addressed:: The purpose of this session was to address client's current symptoms, stressors, and application of coping skills. Another goal was to help client improve communication of her needs to supports. Other topics included; self-care. Eye Contact:: Good Motor Activity:: Appropriate Appearance:: Casual Speech:: Rambling Mood:: Euthymic Affect:: Congruent Thoughts:: Circular, No evidence of hallucinations/delusions noted Staff Interventions:: Therapist used active listening and open-ended questions to explore client's current stressors, symptoms, and triggers. Therapist discussed the benefits of communicating assertively with supports. Therapist created a worksheet to help client identify and write out the specific support she needs and how to communicate this with her family. Therapist gave client homework to continue working on her goal of practicing yoga two/three times a week. Client Response:: Client responded well to session, open to meeting with therapist. Client shared since last session, she is not feeling as restless, but she continues to struggle with low energy. Client has been working on her goal of practicing yoga at least two times a week. Client reported when she does yoga in the morning it positively impacts her mood. Client shared she connected with the group topic of communication today. Client reported she has gained awareness that she tends to be passive-aggressive when she communicates with her supports. Client stated she will assume her family knows how to help her or should know how to help client. Client reported she is most passive-aggressive about her emotional needs which causes client to feel alone and like ?people don?t care.? Client receptive to completing the worksheet provided by therapist. Client able to identify the physical, emotional, verbal, and perspective support she needs. Client also wrote out how she plans to ask for this from the supports in her life. For physical support client wants to tell her family she wants to give and receive hugs and high fives before people leave for the day. For emotional support, client wants to be listened to with being interrupted or judged. Client willing to share this with her supports this week. Risks/Concerns:: Client denies any suicidal ideations, plan, or intent as of 08/16/19. Client was future oriented and positive throughout session. Progress Toward Goals/Plan:: Client appears to be demonstrating progress as evidenced by her report of medication compliance and report practicing healthy coping skills on a more consistent basis since last session. Client recognizes that her lack of communication with her family causes increase in client?s mental health symptoms. Client continues to report restlessness, low motivation, and fatigue. Client also reports anxiety and rumination. Will continue tx to promote use of healthy coping skills, increase mood stability, and improve communication with supports. Time Stopped:: 13:20
--- NOTE | 2019-08-17 09:05 | BH.SGPN.GN ---
Behaviors/Verbalizations/Mental Status: [Client alert and oriented, neat and casual dress, hygiene tended to. Eye contact good. Motor activity appropriate. Speech within normal limits. Affect congruent, mood euthymic. Thoughts linear, logical, no signs of hallucinations or delusions. Reviewed client?s symptom tracker, no signs of suicidal ideation, plan, or intent as of today. ] Client Response/Progress/Benefit: [Pt was receptive of session, actively listening throughout and providing input to the group. Emotion for today is ?jovial?. She indicated that this was due to increased ability to practice self-care and personal reflection. Reported that this is a win for her as she was able to practice self-forgiveness and work on asking for help more consistently. Additional win noted as continuing to work on application of emotion regulation skills to allow herself to accept days when her emotions are low and cope rather than catastrophize. Pt appeared to benefit from the supportive feedback and encouragement provided by the group. Pt progress noted in reported application of skills learned outside tx environment as well as self-report of improved mood management. Recommended continued tx to prevent decompensation, continue to increase emotion regulation and reduce anxiety, as well as promote healthy change behaviors.] Narrative Note: []
--- NOTE | 2019-08-17 10:30 | BH.SGPN.GN ---
Behaviors/Verbalizations/Mental Status: []Client alert and oriented, casual dress, hygiene tended to. Eye contact good. Motor activity appropriate. Speech within normal limits. Affect constricted, mood dysthymic. Thoughts linear, logical, no signs of hallucinations or delusions. Client Response/Progress/Benefit: []Pt passive participant AEB pt providing limited input throughout discussion, however did appear to listen attentively to peers. Able to brainstorm with the group positive and negative aspects of stress on physical and mental health. She completed worksheet in which she identified her current stressors that are impacting mental health. Pt chose to not share her current stressors out loud with group. Appeared to benefit from gaining awareness of own current stressors and learning about the impact stress has on overall wellbeing. Recommend continued IOP tx to increase consistent use of healthy coping skills, challenge distorted thoughts, and prevent decompensation. Narrative Note: []
--- NOTE | 2019-08-17 11:27 | BH.SGPN.GN ---
Behaviors/Verbalizations/Mental Status: []Client alert and oriented, neatly dressed and groomed. Eye contact poor-sleeping prior to the activity. Motor activity appropriate. Speech within normal limits. Affect flat, mood dysthymic/fatigued. Thoughts linear, logical, no signs of hallucinations or delusions. Client Response/Progress/Benefit: []Client was disengaged during the beginning of session, but then became active once group started the challenge activity. Client worked with the group to complete the challenge activity and was providing positive feedback. Client was able to identify barriers encountered that may also impact managing stress in daily life. Group identified barriers of stress management to include taking on the biggest stressor at once, losing patience, and negative self-talk. Client actively listening during discussion about the 4 A's of managing stress. Expressed wanting to increase awareness of which strategies would be best for improving each of her identified stressors. Client seemed to benefit from increased awareness of the impact of stress on mental health and increasing repertoire of stress management strategies. Progress noted as client reports medication compliance and reduced isolative behaviors. Will continue IOP tx as client can continue to improve mood stability and reduce depressive symptoms. Narrative Note: []
--- NOTE | 2019-08-21 09:00 | BH.SGPN.GN ---
Behaviors/Verbalizations/Mental Status: [] Eye contact is good. Motor activity is appropriate. Appearance is neat. Speech is Appropriate. Mood is anxious. Affect is congruent. Thoughts are linear and logical. No evidence of psychosis. Reviewed daily check in sheet and no reports of suicidal ideations or intent. Client Response/Progress/Benefit: [] Pt participated at times during group discussion. Emotion for today is upbeat and accomplished. She talked about mental health wins and accomplishing tasks which has improved her mental health. Was honest that she forgot to take her meds 2 days in a row. She verbalized that she is working with her psychiatrist to find the right dosage to ensure that she is not a zombie however not manic or disorganized. Insight on the importance of her medications and how they keep her mood from being a roller coaster. She was honest that she does feel that they do decrease her energy though. Group was supportive and encouraged the use of medication. Peers discussed some events that tool place when they abruptly stopped their medications which benefited pt. Will continue in IOP to prevent decompensation and provide support. Narrative Note: []
--- NOTE | 2019-08-21 10:02 | BH.SGPN.GN ---
Behaviors/Verbalizations/Mental Status: []Client alert and oriented, neatly dressed and groomed. Eye contact good. Motor activity appropriate. Speech within normal limits. Affect congruent, mood euthymic. Thoughts linear, logical, no signs of hallucinations or delusions. Client Response/Progress/Benefit: []Client was attentive and participating during discussion. Client participated in discussion of the quote and shared belief that people have a choice to change the path they are on in life, but it takes ?breaking the cycle.? Client stated, ?we can?t always change the circumstance, but we can change our perspective.? The group worked together to identify barriers that keep one from choosing a new and healthier path to mental wellness which included; unhealthy habits, fear of failure, stigma, lack of supports, and negative thinking. Attentive during psychoeducation on the chapters of life. Client was attentive during discussion, providing insight to distinguishing factors in each chapter. Client shared to choose a different path, one needs awareness and to have the courage to face problems rather than avoid them. Benefited from increased awareness and education on barriers to choosing new wellness paths and chapters of life. Progress noted as client reports less isolative behaviors and use of opposite action. Will continue IOP tx to promote application of healthy coping skills and increase communication with her supports. Narrative Note: []
--- NOTE | 2019-08-21 11:10 | BH.SGPN.GN ---
Behaviors/Verbalizations/Mental Status: []Client alert and oriented, casually dressed and groomed. Eye contact good. Motor activity appropriate. Speech within normal limits. Affect congruent to topic being discussed, mood euthymic. Thoughts linear, logical, no signs of hallucinations or delusions. Client Response/Progress/Benefit: []Client was an active participant in group discussion, contributing to discussion and listened attentively to others. Completed worksheet and willing to share with the group. Client reported believe she is currently in chapter 4? as client shared she is trying to find alternative ways of doing things so she does not fall in the same trap of getting stuck. Client shared to get to the next chapter she will focus on taking a deep breath and doing the opposite of what she actually does. Also, stated she will remind herself there may be setbacks, but she can continue to move forward. Client identified things currently doing that will help her get to the next chapter include continue to use opposite action and getting out of her comfort zone. Benefited from group by identifying thoughts and behaviors that have kept her stuck and developing plan to promote progress. Will continue in IOP to continue to use healthy coping skills, challenge distorted thoughts and prevent decompensation. Narrative Note: []
--- NOTE | 2019-08-21 14:46 | BH.MDN_ITS ---
Multi-Disciplinary Note - Note 30-min Individual Time Started:: 12:15 Date: 08/21/19 Purpose of session/treatment goals addressed:: The purpose of this session was to address client's current symptoms, stressors, and barriers. Another goal was to discuss strategies to promote behavioral activation and prevent self- sabotage. Other topics included stigma. Eye Contact:: Good Motor Activity:: Appropriate Appearance:: Neat, Casual Speech:: Appropriate Mood:: Euthymic Affect:: Congruent Thoughts:: Circular, No evidence of hallucinations/delusions noted Staff Interventions:: Therapist used active listening and open-ended questions to gather information on client?s current symptoms, stressors, and barriers. Therapist gently challenged client?s negative thinking that reinforces low motivation and depressive cycles. Therapist helped client brainstorm solutions to overcome barriers. Therapist used motivational interviewing and behavioral activation strategies to encourage change behaviors. Therapist gave client homework to limit her phone time and write one journal entry by the end of the week. Client Response:: Client responded well to session, open to meeting with therapist. Client shared she has been struggling with low motivation and low energy lately. Client able to see that when her mood is low and she is not active, her thoughts become more negative. Client receptive to thought challenging and combating stigma. Client recognizes that when she does not keep up with her self-care routine her mood worsens. Client shared she had been trying to walk her dog and do yoga more often, but lately she finds herself on her phone. Client would like to start journaling again as well, but because her energy is low, client is struggling to tap into her creativity. Therapist and client brainstormed ways to help client break her current depressive cycle. Came up with the solution of only playing games on her phone during a smoke break and to put her phone down after one game. Client reported it would be helpful to c reate a premade list of journal topics to pick from, so client is not stuck on coming up with something to write about. Client shared someone from group gave client something to journal about, and client reports belief this will motivate client to write this week because she has someone to hold her accountable. Client receptive to homework. Risks/Concerns:: Client denies any suicidal ideations, plan, or intent as of 08/21/19. Progress Toward Goals/Plan:: Client appears to be demonstrating progress as evidenced by her self-report of increased self-awareness and ability to identify healthy coping skills. Client self-reports low motivation and lack of energy currently which has caused an increase in depressive symptoms recently. Client acknowledges that behavioral activation will help client break unhealthy maintenance cycles and client is willing to practice these skills. Client also continues to struggle with assertively communicating with her supports and setting boundaries. Will continue tx to promote use of healthy coping skills, prevent decompensation of depressive symptoms, and improve mood stability. Time Stopped:: 12:51
--- NOTE | 2019-08-23 09:05 | BH.SGPN.GN ---
Behaviors/Verbalizations/Mental Status: [] Eye contact is good. Motor activity is appropriate. Appearance is casual. Speech is Appropriate. Mood is anxious. Affect is flat. Thoughts are linear and logical. No evidence of psychosis. Reviewed daily check in sheet and no reports of suicidal ideations or intent. Client Response/Progress/Benefit: [] Pt was an active participant in group discussion. States my thoughts are jumbled today. Discussed mental health wins as following through with goals set by her and her therapist. She has been completing 30 minutes of yoga daily as a form of self-care. She has also begun to journal. Struggles with finding time and motivation to complete these self-care tasks. Needed some redirection at times to stay on topic. She brought up her medications again today during group. She continues to have reservations that she is on the right dosage however continues to work with her doctors. Concerned that she is over-sedated. Insight that w/o the medication she will be erratic and her moods will be all over the place however wants to be less sedated. Identifies that she needs the medications and benefits from them. Group provided support, encouragement, and feedback. Will continue in IOP to prevent decompensation and support. Narrative Note: []
--- NOTE | 2019-08-23 10:10 | BH.SGPN.GN ---
Behaviors/Verbalizations/Mental Status: []Client alert and oriented, casually dressed and groomed. Eye contact good. Motor activity appropriate. Speech within normal limits. Affect congruent to topic being discussed, mood euthymic. Thoughts linear, logical, no signs of hallucinations or delusions. Client Response/Progress/Benefit: []Client responded well to session, actively contributing to discussion. Client appeared to connect with the topic of fear of failure. Client stated failure can eventually lead you to a success because you can learn from past failures. Client reported for her a success is more meaningful if she has to overcome difficulties. Group identified the impacts of fear of failure on mental health which included: not trying, depending too much on others, avoidance, self-sabotage, and increased mental health symptoms. Client stated when she fails she sometimes tells herself she is not good enough and waste of skin. Client seemed to benefit from increased awareness of how fear of failure can impact mental health. Client to continue IOP level of care to challenge distorted thoughts, continue utilization of healthy coping skills, and prevent decompensation. Narrative Note: []
--- NOTE | 2019-08-23 11:14 | BH.SGPN.GN ---
Behaviors/Verbalizations/Mental Status: [Client alert and oriented, neat and casually dressed and well groomed. Eye contact good. Motor activity appropriate. Speech within normal limits. Affect congruent, mood euthymic, anxious. Thoughts linear, logical, no signs of hallucinations or delusions.] Client Response/Progress/Benefit: [Client responded well to session, active participant. Client further processed the group activity and shared that allowing herself to ask for help from others and encouragement from the group helped the accomplish the activity. Client completed the fear of failure worksheet and reported that fear of failure is keeping her from advocating for herself and pursuing her own goals. Client reported her barriers for overcoming her fear of failure are second guessing, difficulty communicating, and worrying that she will be judged by others. Client shared she has been able to bounce back from setbacks in the past and the positive thing she has learned from past failures is that failure can make you more resilient and teach you what you need to do to ensure that your own needs are being addressed. Client selected a goal to help her overcome her fear of failure. Client?s goal is to practice self-awareness and boundary setting strategies, so she can prevent focusing on the negatives. Client appeared to benefit from gaining awareness and setting a goal to reduce fear of failure. Client showing progress in utilizing healthy coping to skills to manage emotions, but she can continue to combat negative thoughts and is recommended continued IOP tx to improve ability to do so.] Narrative Note: []
== END 2019-08-23 23:59 ==
LOC: BHIOP 09:00
PROVIDERS: Family Provider Family Medicine; PCP Family Medicine; Referring Provider Psychiatry & Neurology Psychiatry; Visit Provider Psychiatry & Neurology Psychiatry
DX: F25.0 Schizoaffective disorder, bipolar type (principal); F41.9 Anxiety disorder, unspecified; E03.9 Hypothyroidism, unspecified; Z79.899 Other long term (current) drug therapy
CPT/HCPCS: H0035; 90832; 90834; 90853

== ENCOUNTER 2019-08-24 09:00 | Outpatient (RCR) | payer OTHER, SELFPAY ==
--- NOTE | 2019-07-31 11:11 | BH.SGPN.GN ---
Behaviors/Verbalizations/Mental Status: [Client alert and oriented, casually and neatly dressed and groomed. Eye contact good. Motor activity appropriate. Speech within normal limits. Affect congruent, mood euthymic. Thoughts linear, logical, no signs of hallucinations or delusions.] Client Response/Progress/Benefit: [Client willing to participate in activity and provided encouragement and input, as well as willing to consider suggestions from fellow participants throughout. She listened and contributed during discussion connecting activity to review of how positive and negative forces impact life and mental wellness and the importance of balancing forces in life. Client identified personal positive forces that aid in progressing toward mental health goals include: friends, improved ability to set boundaries, self-awareness, hobbies, music, and therapy. Client indicated personal negative forces include: difficulties managing mental health sx, feeling misunderstood by supports, fear of judgement, toxic environment/people, and negative thoughts. Progress noted in client ability to identify ways in which internal forces can impact personal growth. Client seemed to benefit from increased awareness of personal positive and negative forces in life and impact they have on mental health and wellness. Client to continue IOP level of care to continue to decrease depression, improve ability to challenge negative thoughts and advocate for herself, and prevent decompensation.] Narrative Note: []
--- NOTE | 2019-08-24 09:05 | BH.SGPN.GN ---
Behaviors/Verbalizations/Mental Status: []Client alert and oriented, casually dressed and groomed. Eye contact good. Motor activity appropriate. Speech within normal limits. Affect full, mood euthymic. Thoughts linear, logical, no signs of hallucinations or delusions. Reviewed client?s symptom tracker, no risk for suicidal ideation, plan, or intent as of today. Client Response/Progress/Benefit: []Pt was an engaged participant in group discussion, providing input and openly processing with the group. Emotion for today is exuberant. Pt identified a mental health positive as taking time to engage in self-care by going to get her nails done, which is something she typically wouldn't do unless it was a special occasion. Pt identified additional positive as writing in her journal everyday. Pt identified current stressor is needing to get a new psychiatrist for a second opinion because recently hasn't been pleased with psychiatrist she has been seeing for 10+ years. Progress noted in pt ability to actively apply self-care skills outside of tx environment. Continued IOP tx recommended to continue application of healthy coping skills, reframe distorted thought patterns, and prevent decompensation. Narrative Note: []
--- NOTE | 2019-08-24 10:15 | BH.SGPN.GN ---
Behaviors/Verbalizations/Mental Status: [Client alert and oriented, neat and casually dressed and appropriately groomed. Eye contact good. Motor activity appropriate. Speech within normal limits, at times tangential. Affect congruent, mood euthymic. Thoughts linear, logical, no signs of hallucinations or delusions] Client Response/Progress/Benefit: [Client active participant in group AEB providing input, actively listening and providing feedback to peers, and taking notes throughout. Group worked together to identify barriers to making changes or taking action in their lives which included: fear of the unknown, lack of awareness of problem, fear of how others will react, fear of leaving one?s comfort zone, denial of need to change, and lack of motivation. Group also identified the benefits of change which included; improved relationships, improved sense of hope for future, increased confidence, and improved sense of emotion regulation. Client identified areas she would like to take back control over to include: self-confidence, assertive communication, setting healthy boundaries, and advocating for her mental health needs. Benefited from group through awareness of personal areas she wants to improve and benefits to taking action towards mental wellness. Progress noted in personal reflection of areas she would benefit from making changes for her mental health. Pt is recommended continued IOP level of care to reinforce healthy coping skills, promote healthy boundary setting and effective communication, and prevent decompensation.] Narrative Note: []
--- NOTE | 2019-08-24 11:18 | BH.SGPN.GN ---
Behaviors/Verbalizations/Mental Status: []Client alert and oriented, neatly dressed and groomed. Eye contact good. Motor activity appropriate. Speech within normal limits. Affect constricted, mood euthymic. Thoughts linear, logical, no signs of hallucinations or delusions. Client Response/Progress/Benefit: []Client was an active participant AEB client participating in discussion and working well in her small group. Client attentive and providing input to discussion of the different zones of taking action as well as the pros and cons of each. Client agreed with peers that it best to push oneself, but one does not want to set themselves up for failure. Client completed worksheet in which she identified a problem area to focus on, a SMART goal to help work on problem area, and identify additional supports needed to be successful. Client identified she wants to stop worrying about what other people think. Client identified a small goal which is to write 6-8 sentences about her beliefs and convictions three times a week. Client stated additional supports needed to be successful with goal include: positive self-talk, setting a timer, and making a to do list. Appeared to benefit from creating a small goal to help client worry less about what others think and increase self-confidence. Will continue IOP tx as client can continue to benefit from ongoing work to improve mood stability and prevent decompensation. Narrative Note: []
--- NOTE | 2019-08-28 09:07 | BH.SGPN.GN ---
Behaviors/Verbalizations/Mental Status: []Client alert and oriented, neatly dressed and groomed. Eye contact good. Motor activity appropriate. Speech tangential. Affect constricted, mood euthymic. Thoughts linear, logical, no signs of hallucinations or delusions. Reviewed client?s symptom tracker, no risk for suicidal ideation, plan, or intent as of 08/28/19. Client Response/Progress/Benefit: []Client responded well to session, attentive and providing supportive statements. Tangential, but able to be redirected. Client reports feeling ?positive? today. Client shared over the weekend she set a boundary with a friend and stuck to it. Client stated this is significant for client because she normally goes out of her way to accommoate others instead of taking care of herself. Client also reported she used assertive communication with her over the weekend. Client stated she was able to assertively communicate her expectations and needs with her . Client reported this something she would not have done in the past. Client?s stressor today is ?my [id number] attitude.? Client shared it is hard to maintain boundaries at home because of her children. The group offered support and active listening. Appeared to benefit from reflecting on her boundary setting with her friend. Progress noted as shown by client?s report of prioritizing self-care over the weekend. Will continue IOP tx as client continues to struggle with consistency and can benefit from further decreasing her symptoms. Narrative Note: []
--- NOTE | 2019-08-28 11:25 | BH.SGPN.GN ---
Behaviors/Verbalizations/Mental Status: [Client alert and oriented, neat and casually dressed and appropriately groomed. Eye contact good. Motor activity appropriate. Speech within normal limits. Affect congruent, mood euthymic. Thoughts linear, logical, no signs of hallucinations or delusions.] Client Response/Progress/Benefit: [Client responded well to session, engaged in activity, actively listening as well as providing input to discussion. At times client struggled with rambling or off-topic remarks, however continues to do well to respond to redirection. Group identified the benefits of addressing stigma which included; increased self-confidence, decreased feelings of shame or unworthiness, improved relationships, and increased willingness to ask for help. Client helped the group identify thoughts and behaviors people engage in that reinforce stigma. Client discussed at length the impact of other?s opinions and toxic language on reinforcing self-stigma and reported she has struggled with self-comparison and doubt as a result which reinforces stigma in her own life. Group brainstormed strategies to combat social and perceived stigma which included; changing personal language used, sharing positive mental health related media, communicating with supports, attending therapy, and increasing psychoeducation of self and others to reduce labeling behaviors. Client reported she will practice increasing self-awareness and use of healthy boundaries to cut out toxic language and unhealthy supports that reinforce her feelings of shame regarding. Appeared to benefit from increasing awareness of ways he reinforces stigma as a means of how to combat stigma. Will continue IOP tx to further reduce depression, increase consistent use of internal coping mechanisms, as well as improve emotion regulation.] Narrative Note: []
--- NOTE | 2019-08-28 13:12 | BH.MTP_ITS ---
Treatment Plan Review Date of Admission:: 07/25/19 Date of Treatment Plan Review:: 08/28/19 Admitting Diagnoses:: Schizoaffective disorder (F 25.0), anxiety disorder NOS Current Diagnoses:: Schizoaffective disorder (F 25.0), anxiety disorder NOS Patient's Response to Treatment:: Client has responded well to treatment so far as shown by her overall consistent attendance, active participation, and reduction of DSM-5 symptoms. Client is active participate who frequently contributes to discussions, provides supportive statements to peers, and takes notes. In individual sessions, client is receptive to learning new coping skill, is open to challenging negative thinking, and is active in her treatment. Client self-reports variable application of coping skills at times, but she does well to get back on track. Client also self-reports inconsistent medicaion compliance at times. Client acknowledges that when she uses her skills and takes her medications consistently, she feels better. Client has been working on using opposite action, setting small goals, and practicing setting boundaries. Client is also working on communicating more assertively and challenging distortions. At review, client?s DSM-5 symptom scores decreased by 38%. Client?s DSM-5 scores for depression decreased, from 5/8 at admission to 4/8 at review. Additionally, client?s suicidal ideation decreased from admission to review going from 2/4 to 0/4. Client?s anxiety decreased since admission as well going from 9/12 to 5/12 at discharge. Client recognizes that maintenance with medications and coping skills will be needed to promote mood stability. Status of Current Problems and Symptoms: Client presents with a more positive outlook today and is more motivated to make changes. However, client continues to struggle with obtaining consistent mood stability. Client also continues to report inconsistent medication compliance and application of coping skills. Client reports when she is doing better, she is more consistent. Client also con tinues to report interpersonal issues with her family that impact client?s wellbeing and mental health symptoms. Additionally, client reports work stress and anxiety about losing her job. Problem #1 Problem Name:: Pt. will decrease depressive symptoms, isolation, and negative thinking Status of Goals:: Objective 1- complete, but ongoing work recommended. Client can identify healthy coping skills to manage depression such as using opposite action, thought challenging, yoga, and reaching out to friends. Client reports inconsistent application of coping skills at times. Client?s DSM-5 scores decreased since admission. Objective 2- partially complete. Client has been active in hockey and she reaches out to her best friend throughout the week. However, client continues to struggle with finding self-care activities outside of her house and work. Team Recommendations:: Client encouraged to continue working on this treatment goal to reinforce healthy coping skills and continue to decrease depressive symptoms. Client and therapist currently working on maintenance strategies to prevent isolation, setting boundaries, and challenging negative thoughts that reinforce depression. Client encouraged to follow up with her outpatient providers for continuity of care and to maintain medication compliance. Problem #2 Problem Name:: Pt. will reduce frequency, intensity, and duration of paranoia and anxiety Status of Goals:: Objective 1-complete, but ongoing work recommended. Client can identify her anxiety and paranoia triggers and she has awareness of calming skills. Client?s DSM-5 scores have decreased since admission. Client has been practicing positive self-talk and yoga to help manage her anxiety. Client?s interpersonal relationship issues continue to impact client?s overall wellbeing and cause anxiety. Objective 2- complete, but ongoing work recommended. Client can identify cognitive distortions that lead to rumination such as jumping to conclusions and overgeneralizing. Client has been working to challenge her thinking, but she can continue to improve upon this skill. Team Recommendations:: Client encouraged to continue working on this treatment goal to reinforce healthy coping skills and to decrease frequency and duration of anxiety and paranoia symptoms. Client and therapist currently working on reinforcing calming coping skills, challenging anxious thoughts, assertive communication, and self-care. Client encouraged to follow up with outpatient providers for continuity of care and to continue medication management.
--- NOTE | 2019-08-28 13:54 | BH.MDN ---
Multi-Disciplinary Note - Note 60-min Individual Time Started:: 10:49 Date: 08/28/19 Purpose of session/treatment goals addressed:: The purpose of this session was to address client's current symptoms, stressors, and maintenance strategies. Another goal was to discuss strategies to improve communication with supports. Other topics included stigma and thought challenging. Eye Contact:: Good Motor Activity:: Appropriate Speech:: Rambling Mood:: Euthymic Affect:: Congruent Thoughts:: Circular, No evidence of hallucinations/delusions noted Staff Interventions:: Therapist used active listening and open-ended questions to gather information on client?s current symptoms, stressors, and communication barriers. Therapist created a social support worksheet to help client specifically identify the type of support she wants. Therapist taught client assertive ways to ask for help and reviewed the pros and cons of different communication styles. Therapist used cognitive restructuring techniques to help client challenge self-stigma and reinforce strengths. Therapist gave client homework to finish her social support worksheet and practice communicating more directly with her supports. Client Response:: Client responded well to session, open to meeting with therapist. Client reported in group today she realized how passive-aggressive she is with her supports. Client shared I don't tell them what I want and then I'll get mad when they don't do it. Client receptive to working on the social support worksheet created by therapist. Client identified emotional, perspective, and verbal as the type of support she wants most. Client reported in the past when she needed this type of support, her family did not provide what client needed which made client feel invalidated. After further discussion, client recognized that she often does not specifically say what she needs which causes resentment and negatively impacts client's relationships. Client and therapist worked on verbalizing needs and identifying specific types of support client can ask for. Client shared she wants her supports to listen without interrupting, to spend more quality time together without distractions, and to give client a different perspective without being judgmental. Client willing to practice assertively communicating this with her supports for homework. Client reported she continues to struggle with struggle and accepting her mental health diagnosis. Client and therapist discussed the strengths that come with having a mental health diagnosis and client was able to challenge her perspective. Risks/Concerns:: Client denies any suicidal ideations, plan, or intent as of 08/28/19. Progress Toward Goals/Plan:: Client appears to be demonstrating progress as evidenced by her self-report of using coping skills to break her depressive cycle last week. Client presents with a more positive outlook today and is more motivated to make changes. Client stated she realized in group today that she is very passive-aggressive with her supports, which ?only makes things worse.? Client continues to present with mood instability and can continue to benefit from working on increasing consistent use of coping skills and medication compliance. Will continue tx to promote use of healthy coping skills, prevent decompensation of depressive symptoms, and improve communication with supports. Time Stopped:: 11:49
--- NOTE | 2019-08-30 09:10 | BH.SGPN.GN ---
Behaviors/Verbalizations/Mental Status: [] Eye contact is good. Motor activity is appropriate. Appearance is neat. Speech is Appropriate. Mood is depressed. Affect is flat. Thoughts are linear and logical. No evidence of psychosis. Reviewed daily check in sheet and no reports of suicidal ideations or intent. Client Response/Progress/Benefit: [] Pt was an active participant in group discussion. Emotion for today is frustrated, tried, and sad. Shared some frustrations with her support. Feels that he mood and actions are under a constant microscope. Gave examples of not doing yoga this AM which resulted in support asking if she was taking her medications. This causes pt to get defensive. She discussed how this impacts her relationships. She also discussed a negative interaction with her outpatient therapist yesterday afternoon. Group provided feedback, support, and encouragement. Notes some mental health wins which included reaching out to a friend. No progress noted. Will continue in IOP to prevent decompensation, maintain gains, and provide support. Narrative Note: []
--- NOTE | 2019-08-30 10:20 | BH.SGPN.GN ---
Behaviors/Verbalizations/Mental Status: []Client alert and oriented, neatly dressed and groomed. Eye contact good. Motor activity appropriate. Speech within normal limits. Affect flat, mood dysthymic. Thoughts linear, logical, no signs of hallucinations or delusions. Client Response/Progress/Benefit: []Client responded well to session, attentive and participating in discussion. Client commented on quote and shared certain ?doshi? in life are placed by external circumstances or by one?s upbringing, while other ?doshi? are put up by how one jessie with those circumstances. Participated in discussion of things that can keep people feeling trapped or stuck in life including; fixed thinking, alcohol and drugs, lack support, and lack of confidence. Group discussed the connection between thoughts, emotions, and behaviors as well as how negative thinking can keep a person stuck. Client attentive during psychoeducation on maintenance cycles and reported she has been stuck in a depressive maintenance cycle before. Client able to identify negative thoughts that have reinforced depression and kept client feeling trapped. Client shared negative thoughts that have kept her stuck which included: ?there is too much to do, I?m overwhelmed, if I don?t take care of others, I?ll be letting others down, it?s not gonna change so why bother.? Appeared to benefit from gaining awareness of how negative thoughts reinforce mental health symptoms and keep people stuck. Progress noted in client?s report of using more opposite action to prevent decompensation of depressive symptoms. However, client continues to struggle with consistent mood stability. Narrative Note: []
--- NOTE | 2019-08-30 11:22 | BH.SGPN.GN ---
Behaviors/Verbalizations/Mental Status: []Client alert and oriented, neat in appearance. Eye contact good. Motor activity appropriate. Speech within normal limits. Affect constricted, mood dysthymic. Thoughts linear, logical, no signs of hallucinations or delusions. Client Response/Progress/Benefit: []Client responded well to session, providing input during discussion and listening attentively to others. Client appeared to connect with how negative thinking can keep a person stuck. Client identified a negative thought that has kept her stuck. Client?s thought was ?I am overwhelmed with what I need to do. I cannot succeed in taking care of my family.? Client stated when she has this thought she either shuts down or goes manic and tries to get everything done herself. Client able to reframe the thought to ?I have a loving family and concerned friends. I do enough, I am enough.? Client shared this thought would improve her mental health because it would help her be more confident and decrease depression. Client appeared to benefit from practicing challenging negative thinking. Client progressing with improved mood stability and applying healthy skills outside treatment environment. Client to continue IOP to maintain gains, continue utilization of healthy coping, and prevent decompensation. Narrative Note: []
--- NOTE | 2019-08-31 09:05 | BH.SGPN.GN ---
Behaviors/Verbalizations/Mental Status: []Client alert and oriented, neatly dressed and groomed. Eye contact good. Motor activity appropriate. Speech rambling. Affect congruent, mood euthymic. Thoughts circular, no signs of hallucinations or delusions. Reviewed client?s symptom tracker, no risk for suicidal ideation, plan, or intent as of 08/31/19. Client Response/Progress/Benefit: []Client responded well to session, connecting with peers and providing positive feedback. Client reports feeling ?enthusiastic? today and stated that overall her week has been positive, despite one ?very hot mess day.? Client reported there were highs and lows throughout her week, but she was able to prevent herself from falling into a deeper depressive cycle by not isolating yesterday. Client identified her mental health wins today which included: going to an event she was interested in yesterday, walking her dog this morning, and gaining awareness that she has the power to change her mood. Client reported she does not have any major stressors today, but she would like to be better with managing ?life stress.? Client reported self-reflection has been beneficial for her because it helps client see the bigger picture and gain a more positive perspective. Appeared to benefit from connecting with peers and reflecting on her ability to make positives by overcoming negatives this week. Will continue IOP tx to promote mood stability, medication compliance, and use of healthy coping skills. Narrative Note: []
--- NOTE | 2019-08-31 10:22 | BH.SGPN.GN ---
Behaviors/Verbalizations/Mental Status: [Client alert and oriented, casually dressed and neatly groomed. Eye contact good. Motor activity appropriate. Speech within normal limits. Affect congruent, mood euthymic. Thoughts linear, logical, no signs of hallucinations or delusions] Client Response/Progress/Benefit: [Client was an active participant in group activity and discussion. At times she struggled with remaining on topic but did well to be redirected when prompted. Pt providing insight and asking questions throughout. Client connected with the topic and worked with group to identify common internal barriers that keep people stuck. Barriers discussed included; fear, feeling misunderstood, not wanting to ask for help, and denial. Client connected with discussion regarding how these barriers can impact relationships and mental health. Shared how not wanting to disappoint others has impacted her ability to take time for herself. Client completed self-reflection activity and identified current reality as feeling as though she is laying in bed depressed and unmotivated to move while everything around her is burning and her supports are safely outside. Shared feeling a lack of apathy and desired to isolate from others. Client shared a realistic, desired reality would be in a more stable environment where she is engaged in her life, asking for help from supports, and more capable of coping with stressors. Client benefited from group as client was able to identify current mental health state and barriers that are impacting progress. Progress noted in ability to discuss how internal barriers have kept her stuck and impacted ability to practice self-care. Will continue IOP to increase consistent skill application, reduce depression, improve communication, and prevent decompensation.] Narrative Note: []
--- NOTE | 2019-08-31 11:22 | BH.SGPN.GN ---
Behaviors/Verbalizations/Mental Status: []Eye contact is good. Motor activity is appropriate. Appearance is casual. Speech is Appropriate. Mood is euthymic. Affect is congruent. Thoughts are linear and logical. No evidence of psychosis. Client Response/Progress/Benefit: []Pt was an active participant in group discussion and activity. Able to identify not admitting has a problem, no motivation, negative self-talk, and not asking for help as obstacles which are preventing her from achieving her desired reality. Active during activity. Pt along with peers identified various obstacles during the activity and developed 3 strategies to overcome those obstacles to wellness and desired reality. Group wrote down the strategies and added them to their program binder. Benefited from group by identifying obstacles and solutions to desired reality. Narrative Note: []
--- NOTE | 2019-09-04 09:08 | BH.SGPN.GN ---
Behaviors/Verbalizations/Mental Status: [Client alert and oriented, neat and casual dress, hygiene tended to. Eye contact good. Motor activity appropriate. Speech within normal limits. Affect congruent, mood dysthymic and frustrated. Thoughts linear, logical, at times tangential, no signs of hallucinations or delusions. Reviewed client?s symptom tracker, no signs of suicidal ideation, plan, or intent as of today. ] Client Response/Progress/Benefit: [Pt responded well to session, actively engaged throughout, though struggling to remain on topic. Pt noted her emotion for the day is ?resilient? and indicated that this is due to continuing to work towards her goal of focusing on the positive despite feeling surrounded by negativity. Reports she has been continuing to struggle with communicating effectively when feeling attacked or belittled which has created tension in her relationship with her . Pt appeared to benefit from supportive feedback and suggestions provided by group. Indicated a mental health win as not allowing the conflict with her negatively impact her mood for the remainder of the day and instead spoke to her daughter which improved her mood. Additional win identified as using ?fair fighting? rules and taking a deep breath, using positive self-talk, and returning to the conversation. Pt progress noted in increased application of emotion regulation skills. Recommended continued IOP tx to continue to promote change behaviors, increase depression management skills, and prevent decompensation.] Narrative Note: []
--- NOTE | 2019-09-04 10:25 | BH.SGPN.GN ---
Behaviors/Verbalizations/Mental Status: []Client alert and oriented, neatly dressed and groomed. Eye contact good. Motor activity appropriate. Speech within normal limits. Affect constricted, mood irritated. Thoughts linear, logical, no signs of hallucinations or delusions. Client Response/Progress/Benefit: []Client receptive of session, attentive in discussion and activity. Client discussed the quote and shared ?we have to find the appropriate way to tell people how we are feeling without going into a downward spiral.? Client helped group identify the consequences of not effectively managing emotions which included; strained relationships, guilt, suppressing emotions, increased negative thinking, resentment, blowing things out of proportion, and impulsive behaviors. Group identified barriers that impact one?s ability to communicate when emotions are high. These barriers included; acting on impulse, shutting down, physical aggression, assumptions, and misinterpretations. Client shared that when she has suppressed emotions in the past ?everything started bothering me.? The group also discussed how not managing emotions can lead to self-sabotage. Client participated in the activity and did well to manage her emotions. Client appeared to benefit from increasing awareness of how emotions can impact communication and practicing in the moment coping skills. Progress noted as client reports more consistent use of opposite action and thought challenging. Will continue IOP tx to promote mood stability and further improve emotional regulation. Narrative Note: []
--- NOTE | 2019-09-04 11:25 | BH.SGPN.GN ---
Behaviors/Verbalizations/Mental Status: []Client alert and oriented, casual in appearance. Eye contact good. Motor activity appropriate. Speech within normal limits. Affect congruent, mood euthymic. Thoughts linear, logical, no signs of hallucinations or delusions. Client Response/Progress/Benefit: []Client attentive and contributing to discussion. Attentive during psychoeducation on 4 zones of regulation. Client able to identify how she feels in each zone as well as how she acts in each zone. Client able to identify what behaviors she exhibits when in the different emotional zones. Client stated when she is in a low state of alertness she tends to isolate. Client reported in an extreme state of alertness she can have increased obsessions and delusions. Client also able to identify coping skills she can use to support herself in each zone which included: opposite action, going on a walk, hanging out with friends, mindfulness, and relaxation techniques. Benefited from group from increased education on zones of regulation or stages of alertness for emotions and healthy coping skills to use for each zone. Will continue IOP tx to maintain gains, prevent decompensation, and continue utilization of thought challenge. Narrative Note: []
--- NOTE | 2019-09-06 09:10 | BH.SGPN.GN ---
Behaviors/Verbalizations/Mental Status: []Client alert and oriented, casually dressed and groomed. Eye contact good. Motor activity appropriate. Speech tangential, needed redirection back to purpose of conversation. Affect full, mood dysthymic and agitated. Tearful at times. Thoughts linear, logical, no signs of hallucinations or delusions. Reviewed client?s symptom tracker, no risk for suicidal ideation, plan, or intent. Client Response/Progress/Benefit: []Pt was an engaged participant as evidenced by pt sharing thoughts and feelings during check-in and listening attentively to peers. Pt stated positive moments from this week include: going out with friends, spending time with daughter, and getting out of the house. Pt reported her current stressor is her telling her that she hasn't been doing any chores around the house. Pt stated she has always done the household tasks in the past and she was excited her recently starting doing more business systems lead. However, pt stated she hadn't realized he was doing the chores out of anger, not because he wanted to be helpful. Pt reported lots of frustrations with her relationship. Pt stated she was able to use her healthy coping skills by talking with supports, taking a walk, and not lashing out. Pt stated today she plans to stay busy so she doesn't dwell on her disagreements with her . Progress noted with pt using healthy coping skills to regulate emotions. Continued IOP tx recommended to continue use of healthy coping skills, stabilize mood, and prevent decompensation. Narrative Note: []
--- NOTE | 2019-09-06 10:16 | BH.SGPN.GN ---
Behaviors/Verbalizations/Mental Status: []Client alert and oriented, disheveled appearance. Eye contact good. Motor activity appropriate. Speech within normal limits. Affect flat, mood dysthymic. Thoughts linear, logical, no signs of hallucinations or delusions. Client Response/Progress/Benefit: []Client active participant as shown by client?s contribution to discussion and helpful insight. Client agreed with peers that self-care is important because it is almost impossible to give to others if ?your cup is empty.? Client stated, ?an ounce of prevention is worth a pound of cure? and shared that even though self-care is challenging it incorporate, it can prevent worsening mental health symptoms. Client participated in the discussion of the common myths about self-care including self-care is selfish, means neglecting and avoiding life, pampering self, and always fun. Client participated in the discussion and debunking of these myths. Client reported her supports view self-care as client being lazy and the group helped challenge this for client. Client seemed to benefit from increased awareness of the importance of self-care and challenging common myths that prevent clients from making time for self-care. Client showing progress as shown by her report of utilization of coping skills, but she is currently reporting increased depressive symptoms due to family conflict. Will continue IOP tx to prevent decompensation and promote use of healthy coping skills. Narrative Note: []
--- NOTE | 2019-09-06 11:16 | BH.SGPN.GN ---
Behaviors/Verbalizations/Mental Status: []Client alert and oriented, disheveled appearance. Eye contact good. Motor activity appropriate. Speech within normal limits. Affect congruent, mood dysthymic. Thoughts linear, logical, no signs of hallucinations or delusions. Client Response/Progress/Benefit: []Client receptive of session, actively listening and providing good insight to discussion. Willing to complete worksheet activity. Participated as the group further processed the activity and connected with the importance of self-care in maintaining mental health and preventing burn-out. Client completed self-assessment activity on the different areas of self-care and was able to identify current practices she uses and identify areas she can improve upon. Client reported she can improve her physical and emotional self-care. Client set a goal to improve in the area of emotional and physical self-care. Client?s goal is to get back on track with exercising three times a week and she wants to start tracking her progress so she can challenge negative thoughts. Client shared this would benefit client because whenever she has a setback, she has negative thoughts of ?I?m starting back at the beginning.? Client appeared to benefit from increasing awareness of how she can improve her self-care balance. Progress noted as client has increased self-awareness of her maintenance cycles and recognizes that she is currently falling into old patterns of behavior. Will continue IOP tx to prevent further decompensation of depressive symptoms and help client get back on track with the progress she has made. Narrative Note: []
--- NOTE | 2019-09-07 09:10 | BH.SGPN.GN ---
Behaviors/Verbalizations/Mental Status: [] Eye contact is good. Motor activity is appropriate. Appearance is casual. Speech is Appropriate. Mood is depressed. Affect is flat. Thoughts are linear and logical. No evidence of psychosis. Reviewed daily check in sheet and no reports of suicidal ideations or intent. Client Response/Progress/Benefit: [] Pt was an active participant in group discussion. Emotion for today is cautiously optimistic. Shared some mental health wins since last IOP sessions stating that she had dinner with her family which went well. Also completed an assignment where she reached out to support. Continues to note challenges with her stating he is my biggest support and stressor. Doesn't feel that he is available emotionally. Asked for some feedback from group which she found helpful. Ruminating a great deal on conflict with and firing her therapist. Not sure about the best way to do this and doesn't want to hurt her therapist's feelings. Group provided feedback. Limited progress noted as she has been reporting these stressors for several weeks. Does not wish to bring in for family session which limits progress. Benefited from group support, encouragement, and feedback. Will continue in IOP to prevent decompensation. Narrative Note: []
--- NOTE | 2019-09-07 10:18 | BH.SGPN.GN ---
Behaviors/Verbalizations/Mental Status: [Client alert and oriented, neatly dressed and groomed. Eye contact good. Motor activity appropriate. Speech within normal limits. Affect congruent, mood euthymic. Thoughts linear, logical, no signs of hallucinations or delusions. ] Client Response/Progress/Benefit: [Client active participant AEB providing input throughout session, engaged in group activity and listening attentively to peers. Client reported being resilient means adjusting and coping with change rather than being ?uprooted in a crisis?. Client shared ?it?s hard when we get stuck on only seeing things one way? rather than allowing ourselves to be flexible. Client discussed connections between activity and barriers/supports to development of a resilient lifestyle. Client agreed with peers that one can learn to become more resilient throughout life. Client benefitted from brainstorming benefits of being resilient which included: increased self-confidence, willingness to keep working through adversity, and improved crisis management. Client progressing with increased application of skills outside treatment environment and with more effectively managing her mood symptoms. Continues to report difficulties in application of conflict resolution skills. Recommended continued IOP tx to promote healthy change behaviors, maintain stability, as well as maintain gains.] Narrative Note: []
--- NOTE | 2019-09-07 14:10 | BH.MDN_ITS ---
Multi-Disciplinary Note - Note 60-min Individual Time Started:: 11:50 Date: 09/07/19 Purpose of session/treatment goals addressed:: The purpose of this session was to address client's current symptoms, stressors, and application of coping skills. Another goal was to review client?s maintenance plan homework. Other topics included boundary setting and assertive communication. Eye Contact:: Good Motor Activity:: Appropriate Appearance:: Neat Speech:: Rambling Mood:: Euthymic, Irritable Affect:: Congruent Thoughts:: Circular, No evidence of hallucinations/delusions noted Staff Interventions:: Therapist used active listening and open-ended questions to explore client's current stressors, symptoms, and triggers. Therapist provided emotional support, gentle thought challenging, and positive reinforcement on client?s application of coping skills. Therapist reviewed client?s maintenance plan homework and discussed ways to promote mental health maintenance with client. Therapist reviewed strategies to promote boundary setting and assertive communication. Therapist helped client look at the pros and cons of not communicating her needs with her family. Therapist gave client homework to complete an accomplishment log throughout the week. Client Response:: Client responded well to session, open to meeting with therapist. Client reports she is feeling better than earlier in the week. Client acknowledges that using healthy coping skills helped break client out of a depressive cycle. Client shared she continues to feel frustrated with her family, especially her . Client reports her has double standards and client is often accused of being lazy when she tries to take time for self- care. Client admits to self-sabotaging behaviors and feeding into what her and children think of her. Client stated she now realizes that this only hurts client and keeps client feeling stuck. Client shared she now sees the benefits of communicating her feelings and being more assertive. Client willing to set boundaries this weekend. Client completed her maintenance plan and shared that her friend helped client as well. Client able to identify warning signs for depression, paranoia, and isacc. Client also identified coping skills she can use for each warning sign as well as additional support she might need. Client stated opposite action has continues to be very helpful. Client and therapist discussed what would make client's symptoms worse or last longer. Client recognized that ignoring self-care, getting off her sleep routine, eating unhealthily, and isolating all make her symptoms worse. Client receptive to completing the accomplishment log for homework. Risks/Concerns:: Client denies any suicidal ideations, plan, or intent as of 09/07/19. Client presents in a more positive mood today. Progress Toward Goals/Plan:: Client appears to be demonstrating progress as evidenced by her ability to prevent decompensation this week. At the beginning of the week client had reported poor medication compliance, conflict with her , and a more depressed mood. However, today, client reports improved mood and stated she has been using healthy coping skills. Client self-reports more assertive communication at home and more self-reflection. Client continues to report family discord that exacerbates client?s depression. Client acknowledges that isolating and using unhealthy coping skills only reinforces depression and self-sabotages client. Client receptive to completing the accomplishment log and working on applying her maintenance plan. Will continue tx to promote mood stability, improve daily functioning, and increase healthy coping skills. Time Stopped:: 12:57
--- NOTE | 2019-09-11 09:10 | BH.SGPN.GN ---
Behaviors/Verbalizations/Mental Status: [] Eye contact is good. Motor activity is appropriate. Appearance is casual. Speech is Appropriate. Mood is depressed. Affect is flat. Thoughts are linear and logical. No evidence of psychosis. Reviewed daily check in sheet and no reports of suicidal ideations or intent. Client Response/Progress/Benefit: [] Pt was an active participant in group discussion. Emotion for today is melancholy. Pt talked at length about an interaction with a friend who is currently on hospice. She discussed how this impacted her and caused her to change her perception on a great number of things. Insight into how can be a motivator to live in the present. Changes topics quickly and transitioned into stress related to her job. Her place of employment may be going out of business. Lastly she discussed communicating effectively to support with limited MH knowledge. Utilizing process group appropriately and seeks feedback from peers. Progress noted. Benefited from feedback and support. Will continue in IOP to maintain gains, support, and to prevent decompensation. Narrative Note: []
--- NOTE | 2019-09-11 10:17 | BH.SGPN.GN ---
Behaviors/Verbalizations/Mental Status: [Client alert and oriented, neat and casual dress, hygiene tended to. Eye contact good. Motor activity appropriate. Speech within normal limits. Affect congruent, mood dysthymic, agitated. Thoughts linear, logical, no signs of hallucinations or delusions.] Client Response/Progress/Benefit: [Pt engaged in session as evidenced by pt listening to others and providing input throughout. Pt stated she believes people run away from problems because fear, but that the fear is ?worse than the problem itself?. Pt stated she has run away from her problems by remaining complacent and struggling to set healthy boundaries with close supports out of fear of being judged/misunderstood. Pt worked with peers to brainstorm the components of A,B,C,D,E problem solving method and did well to begin to apply such during the group experiential activity. Pt seemed to benefit from learning about problem solving method and rehearsing problem-solving skills in the moment. Pt to continue IOP level of care to decrease mental health symptoms contributing to paranoia and intrusive thinking, increase utilization of healthy coping, and prevent decompensation.] Narrative Note: []
--- NOTE | 2019-09-11 11:17 | BH.SGPN.GN ---
Behaviors/Verbalizations/Mental Status: []Client alert and oriented, casually dressed and groomed. Eye contact good. Motor activity appropriate. Speech within normal limits. Affect constricted, mood anxious. Thoughts linear, logical, no signs of hallucinations or delusions. Client Response/Progress/Benefit: []Client was an active participant in group activity and discussion. Client processed challenge activity with fellow participants and made connections with the barriers to problem solving encountered. Client completed a problem-solving worksheet in which she identified a current problem impacting mental health as needing to advocate better for her children and herself and developed a [id number] plan to address this problem. Client identified steps such as using more direct, but gentle communication, being consistent with her words and actions, and practicing stating what she feels and what she thinks. Client identified barriers to include; predicting the future, fear and anxiety about backlash, and paranoia. Client did well to brainstorm strategies for overcoming barriers and was open to feedback from the group.? Client reported she plans to work on challenging the barrier of fear of backlash by practicing opposite action and doing it anyway. Benefited from creating a personalized plan which client identified barriers and steps to work on a mental health problem. Will continue IOP tx to establish aftercare and reinforce healthy coping skills. Narrative Note: []
--- NOTE | 2019-09-11 14:35 | BH.MDN_ITS ---
Multi-Disciplinary Note - Note 45-min Individual Time Started:: 12:22 Date: 09/11/19 Purpose of session/treatment goals addressed:: The purpose of this session was to review client's progress and review strategies that will promote mood stability and gains made in IOP. Another goal was to discuss discharge recommendations. Other topics included using a decisional balance technique to help client improve decision making. Eye Contact:: Good Motor Activity:: Appropriate Appearance:: Casual Speech:: Rambling Mood:: Anxious Affect:: Congruent - tearful Thoughts:: Circular, No evidence of hallucinations/delusions noted Staff Interventions:: Therapist used open-ended questions to explore client's thoughts on personal progress. Therapist reviewed supports, warning signs, and coping skills with client to promote gains and prevent setbacks. Therapist d iscussed aftercare plan with client and used strengths-perspective to empower client on the goals client has accomplished. Therapist discussed the benefits of ongoing maintenance and use of daily coping skills. Therapist used a decisional balance technique to help client weigh the pros and cons of communicating difficult topics with her supports. Therapist gave client a quote collage for closure. Client Response:: Client responded well to session, open to meeting with therapist. Client and therapist reflected on client's progress since admission. Client self-reported progress to be; increased self-awareness and self- reflection, less self-sabotaging behaviors, more assertive communication and more understanding of her needs, reduced depression, better coping skills, and increased ability to challenge negative thinking. Client and therapist reviewed client's maintenance plan and discussed coping skills that will promote stability. Client's coping skills included; opposite action, reaching out to friends, journaling, yoga, walking her dog, positive affirmations, setting timers, focusing on one thing at a time, and asking herself why am I feeling this or doing this. Client reported she feels like personally she has grown a lot since starting the program, but she continues have interpersonal relationship issues with her and children. Client has been practicing being more direct with them instead of communicating passive-aggressively. However, client shares her still shows little interest in making changes to improve their relationship and promote client's wellbeing. Client reported feeling invalidated in the relationship. Client and therapist discussed client's options and used a decisional balance sheet to weigh the pros and cons of client's options. Client recognizes that if she does nothing, she will continue to feel unhappy and stuck. Client reports plan to look over her decisional balance and discuss it with her best friend. Risks/Concerns:: Client denies any suicidal ideations, plan, or intent as of 09/11/19. Progress Toward Goals/Plan:: Client will be discharging from [facility] this week as she has made great strides towards progress as shown by her reduced depressive symptoms and self-report of generalizing healthy coping skills. Client will continue IOP until Tuesday as she can benefit from seeing psychiatry and reinforcing healthy coping skills. Client continues to report family discord that exacerbates client?s depression. Client acknowledges that she may need to set firmer boundaries at home to promote client?s mental wellness. Client recognizes that she can benefit from continuing to work on her communication, boundary setting, and relationships in outpatient counseling. Time Stopped:: 13:13
--- NOTE | 2019-09-12 12:34 | PCM.BH.PN_ITS ---
Progress Note Progress Note: History of Present Illness/Interim History: [] Patient is a 48-year-old female with a history of schizoaffective disorder who is seen in follow-up at the [facility] IOP program. I last saw the patient about 3 to 4 weeks ago. Patient was admitted in June 2019 for paranoia, disorganized thoughts, confusion and catatonia. She states that even when she started the IOP her symptoms had greatly improved. She continues to improve and feels she is doing well. She states that her mood feels much more stable and her thinking has become normal. She has been compliant with her current medication regimen. She continues to try to wean her Klonopin which was increased to 3 times a day while she was in the hospital probably for catatonia. She states that now she is able to take Klonopin only once a day and is doing fine. I discussed with the patient that she could then continue the Klonopin 1 mg p.o. daily or even 0.5 mg p.o. twice daily if she needs it. So she will continue to wean off of this medication slowly. She did not denies any suicidal or homicidal ideation. She denies any hallucinations or delusions. Her relationship with her has been a big trigger for her symptoms in recent years. She is aware and is interested to work on how she jessie with her issues with her . She understands that she can improve her coping mechanisms and possibly decrease the likelihood that she becomes ill again requiring hospitalization. A long discussion was had over the patient's disagreement with her diagnosis. Discussed again with the patient that psychiatric diagnoses are not precise and that because her sister has schizoaffective disorder and the patient herself has a history of becoming psychotic when stressed and when hormonal changes occur, the diagnosis of schizoaffective is just our closest approximation of her psychiatric symptoms. The patient understands that she is NOT her diagnosis. She has discussed this also with Dr. Aguayo. Current Psychiatric Medications: [] Abilify 20 mg p.o. daily; Cogentin 1 mg p.o. daily; Effexor XR 150 mg p.o. daily; Klonopin 1 mg about once a day now. Mental Status Examination: [] Patient is a 48-year-old female who appears normal for stated age and is casually dressed and groomed with good hygiene. She has good eye contact and no psychomotor agitation or retardation. Speech is normal rate and rhythm with no pressure. Thought process is goal- directed and organized. She is not overinclusive at all. Thought content: No evidence of suicidal or homicidal ideation. No evidence of hallucinations or delusions. Concentration intact. Insight: Good and improving. Judgment: Intact. Impulsivity low. Diagnoses: [] [place] I: [] Schizoaffective disorder (F 25.0), anxiety disorder NOS [place] II: [] Negative [place] III: [] Hypothyroidism [place] IV:[]] Primary support (marital issues), job security issues Plan: [] Patient will continue the IOP program at [facility] and if she continues to improve may be discharged soon. She felt safe during the interview and if it any time she does not feel safe she will tell us at the IOP program, contact Dr. Aguayo or go to the emergency room. The risks, options, and possible complications and side effects of her medication were discussed with the patient and she understands and accepts these. She had many questions about her diagnosis and the need to stay on her medications. The patient agrees to stay on the current doses of her medications for at least 4 to 6 months after her hospitalization in June,. She agrees that at that time she may discuss with her outpatient psychiatric provider possibly decreasing the Abilify dose to a lower maintenance dose. SHe has a sleep study scheduled for October because the patient feels she may have narcolepsy. The patient also wants to find a new counselor because her counselor keeps canceling her appointments and taking phone calls during the appointment. The patient will stay with Dr. Aguayo for now but she is concerned that he may retire soon and may look for a new psychiatrist.
--- NOTE | 2019-09-13 09:00 | BH.SGPN.GN ---
Behaviors/Verbalizations/Mental Status: []Client alert and oriented, neatly dressed and groomed. Eye contact good. Motor activity appropriate. Speech tangential. Affect constricted, mood dysthymic. Thoughts linear, logical, no signs of hallucinations or delusions. Reviewed client?s symptom tracker, no risk for suicidal ideation, plan, or intent as of 09/13/19. Client Response/Progress/Benefit: []Client responded well to session, tangential, but receptive to redirection by therapist. Client reports feeling ?discombobulated? today as she is struggling to find balance. Client stated she has many stressors on her mind today including worries about her job and issues trying to find a new outpatient counselor. Client shared when she feels anxious and frustrated, her thinking becomes negative. The group helped to gently challenge client on her distorted thought patterns. Client recognized that her thinking was impacting her outlook on the future. Client?s mental health wins today included playing hockey the other night, gaining support from group, and reminding herself not to dwell. Client shared she was able to get a lot accomplished at work the last few days, which was positive as well. Appeared to benefit from challenging distorted thoughts in the moment. Will continue IOP for one more day and then discharge. Can benefit from one more IOP day to establish aftercare and reinforce healthy coping skills. Narrative Note: []
--- NOTE | 2019-09-13 10:20 | BH.SGPN.GN ---
Behaviors/Verbalizations/Mental Status: []Client alert and oriented, neatly dressed and groomed. Eye contact good. Motor activity appropriate. Speech within normal limits. Affect constricted, mood dysthymic. Thoughts linear, logical, no signs of hallucinations or delusions. Client Response/Progress/Benefit: []Pt passive participant AEB pt providing limited input however, appeared to listen attentively to peers. Pt participated in group discussion regarding mental health benefits of change. Pt identified three small personal changes to improve mental health as: improve boundaries with family, improve communication with family and supports, and advocate for self instead of being a doormat. Identified current barriers keeping pt from making those changes to be: overcoming fear of disappointing others, giving others too many changes, and not using specific communication. Pt appeared to benefit from gaining awareness of personal changes that would improve mental health and the barriers keeping client stuck. Continue IOP to continue use of healthy coping skills, improve boundary setting, and prevent decompensation. Narrative Note: []
--- NOTE | 2019-09-13 11:18 | BH.SGPN.GN ---
Behaviors/Verbalizations/Mental Status: [Eye contact is fair to good. Motor activity is appropriate. Appearance is neat and casual. Speech is Appropriate. Mood is dysthymic, distant. Affect is constricted. Thoughts are linear and logical, at tmes appearing ruminative in nature. No evidence of psychosis. ] Client Response/Progress/Benefit: [Pt did well to participate in group activity and was engaged though remained a mostly passive participant during discussion regarding making positive mental health changes. Pt times appearing to be distracted by own thoughts though did well to redirect herself and become present in discussion again. Pt worked with group members to identify connections between activity and strategies for overcoming barriers to making mental health changes. She noted that difficulties in communicating with others can be a barrier to ?turning over a new leaf? in personal life. Pt did well to identify a specific change she would like to make for her mental health, barriers to making that change, and a SMART goal to reach that change. Shared she would like to work on improving ability to advocate for herself by beginning to increase use of words that are ?gentle but firm to indicate what is or isn?t acceptable?. Discussed that this change would help to increase self-confidence. Benefited from working with group to identify strategies to overcome barriers to change and create a plan for implementing one small change promoting personal growth. Pt recommended to continue IOP tx to increase effective communication and healthy boundaries, maintain mood stability, and prevent decompensation.] Narrative Note: []
--- NOTE | 2019-09-14 07:29 | BH.IGGP_ITS ---
Aftercare Plan - Demographics Treatment End Date:: 09/14/19 Psychiatrist:: Iveth Mayfield Psychiatrist Office #:: [phone] [facility]/IOP Therapist:: Justina Brown Therapist Phone #:: [phone] - Medications Home Medications: Home Medications Aripiprazole [Abilify] 20 mg PO DAILY 08/01/19 Clonazepam [Klonopin] 1.5 mg PO TID 08/01/19 Benztropine [Cogentin] 1 mg PO DAILY 08/23/19 Venlafaxine XR [Effexor Xr] 150 mg PO BREAKFAST 08/23/19 - Plan Details Progress/Aftercare Plan Details:: Rose has made significant strides since starting IOP as shown by her improved mood and increased ability to cope with her mental health symptoms. When Rose started IOP she was experiencing depression, isolative behaviors, anxiety, and mood instability. Now, Rose is more confident, she knows how to better manage her depression, and she is managing her anxiety much better. Rose has increased awareness of her warning signs for depression, paranoia, and isacc which has helped her be more proactive with self-care. Rose has worked to recognize her maintenance cycles, use self- reflection, and apply healthy coping skills daily. Rose has also been working really hard to communicate more assertively and set boundaries with her supports. Rose has worked on challenging negative thoughts, self-compassion, and looking at the entire picture. Rose continues to work on recognizing her accomplishments and giving herself credit. Rose also continues to work on advocating for herself at home, at work, and with her mental health. Rose plans to continue outpatient counseling and psychiatry. Rose sees Dr. Aguayo for medication management, but he will be retiring, and client is in need of a new provider. Resources were provided for psychiatrists in the area. Rose also is in the process of finding a new therapist. [facility]. Strategies for Success:: 1. Opposite action!! To break out of those depressive cycles remember the benefits of doing the things you don't want to do. 2. Stay active! Walk your dog, hockey, and yoga. 3. Continue to practice self-reflection and asking yourself what's my intention and why am I feeling this way. 4. Remind yourself of your blessings and your accomplishments. 5. Take on one task at a time and set reminders for yourself. 6. Breathe! Give yourself a few minutes to gather yourself. 7. Use mental cues and visual reminders to help you stay on task when feeling manic. 8. Keep up with routine and try to stay consistent with your sleep, eating, medication, exercise regime. 9. SELF-CARE!! Don't forget about you, Rose! 10. Positive self-talk! Remember this will pass! Emotions are temporary and even though negative emotions feel like they last forever, they don't. 11. BOUNDARIES!! You can do it! Remember you deserve to set boundaries for self-care. 12. Communicate directly and assertively! 13. Give yourself credit! You have made a lot of progress in this program! - Appointments Appointments/Referrals to Other Services:: 1. Follow up with Dr. Aguayo. Next appointment is 09/25/19. Continue looking for different providers. Call if you need help with this! 2. Follow up with Baylee Benson at [facility] 10/04/19 3. Follow up with 09/28/19 at 2:00pm
--- NOTE | 2019-09-14 09:05 | BH.SGPN.GN ---
Behaviors/Verbalizations/Mental Status: [] Eye contact is good. Motor activity is appropriate. Appearance is neat. Speech is Appropriate. Mood is euthymic. Affect is full. Thoughts are linear and logical. No evidence of psychosis. Reviewed daily check in sheet and no reports of suicidal ideations or intent. Client Response/Progress/Benefit: [] Pt was an active participant in group discussion. Emotion for today is positive. Shared that today is her last day in IOP. Remarker that overall she has noted improvement. Believes that though IOP she learned not only what she needs to do to improve her MH but HOW to do things. In the past she reports minimal progress through counseling however currently is motivated to continue. She used her check-in to thank her peers and sought some feedback on her aftercare and managing some recent conflict. Discussed continued stressor related to her job however was optimistic and can see some benefits to finding new employment. Benefited from support, encouragement, and feedback. Progress noted per pt reported. Will be discharged today. Narrative Note: []
--- NOTE | 2019-09-14 11:25 | BH.SGPN.GN ---
Behaviors/Verbalizations/Mental Status: []Client alert and oriented, neatly dressed and groomed. Eye contact good. Motor activity appropriate. Speech within normal limits. Affect congruent, mood euthymic. Thoughts linear, logical, no signs of hallucinations or delusions. Client Response/Progress/Benefit: []Client responded well to session, engaged throughout and providing ideas during group brainstorming. Client appeared to connect with the activity from second group and helped the group identify benefits of having a strong foundation of internal and external coping skills. Client shared she still struggles with getting support from her supports, but client?s internal coping skills have improved since starting IOP. Client helped the group discuss the different categories of coping skills and provided examples. Client reported it is important to have a variety of coping skills. Client created a coping skills ?menu? for the five categories of coping skills. Client selected opposite action, treating oneself, 5-senses, and practicing ?taking my own advice.? Client appeared to benefit from increasing her repertoire of healthy coping skills. Client to discharge from [facility] today as she has made significant strides towards her treatment goals and no longer meets criteria for [facility] level of care. Narrative Note: []
--- NOTE | 2019-09-14 14:56 | BH.DS ---
Discharge Summary - Demographics Date of Admission:: 07/25/19 Discharge Date: 09/14/19 Presenting Problems at Admission:: Client is a 48-year-old female with a history of schizoaffective disorder and anxiety unspecified. Client has had several psychiatric hospitalizations with her most recent being at [facility] from 07/05/19-07/17/19. Prior to the hospitalization client had been presenting with symptoms of paranoid delusions, catatonia, disorganized thought patterns, and confusion. At admission, client endorsed erratic sleep, erratic appetite, and difficulty processing information. Client was also isolating frequently, having negative thoughts, and struggling to complete her ADLs. Additionally, client endorsed fleeting suicidal ideations without plan or intent, hopelessness, and increased irritability. Client had a history of medication noncompliance. At admission, client?s symptoms were impacting her ability to function at her baseline. Discharge Diagnoses:: Schizoaffective disorder (F 25.0), anxiety disorder NOS Reason for Discharge:: Client has demonstrated significant progress towards her treatment goals as shown by her reduced depression and anxiety, report of no suicidal ideations, and report of increased ability to cope with daily stressors. Client no longer meets criteria for [facility] level of care. - Treatment Progress During Treatment & Response: Client responded well to treatment as shown by her overall consistent attendance, active participation, and significant reduction of DSM-5 symptoms. Client was an active participate who frequently contributed to discussions and took notes. Client often connected with peers and provided supportive statements. In individual sessions, client was receptive to learning new coping skills and was engaged in her treatment. Client self-reported variable application of coping skills throughout her time in [facility]. Client acknowledged that when she used her skills consistently, she felt better and when she did not, she felt worse. Client self-identified her progress as increased self-confidence, reduced isolation, less depression, less avoidance, no suicidal ideations, increased self-awareness, and better communication with supports. Client also saw progress in using self-compassion, setting boundaries, and challenging self-sabotaging behaviors. At discharge, client?s DSM-5 symptom scores decreased by 57%. Client?s DSM-5 scores for depression decreased, from 5/8 at admission to 2/8 at discharge. Additionally, client?s suicidal ideation decreased from admission to discharge going from 2/4 to 0/4. Client?s anxiety decreased since admission as well going from 07/05 to 01/02 at discharge. Client recognizes that maintenance with medications and coping skills will be needed to promote mood stability. Issues Still to be Addressed:: Client has made strides towards improving her mental health, but she can continue to benefit from ongoing counseling to promote gains. Client acknowledges that she can continue to work on challenging her perspective, consistently applying healthy coping skills, and communicating with her supports. Client has a history of medication noncompliance, and she understands that this can be a barrier for future progress. Client has been working on assertively communicating with her supports and setting boundaries with her family. Client wants to continue improving this as her interpersonal relationships have an ongoing impact on client's mental health and well-being. Lastly, client can continue to practice opposite action, goal setting, self-care, thought challenging, and being social. Discharge Recommendations/Instructions:: Client is recommended to follow up with her outpatient providers to promote continuity of care. Client will follow up with Dr. Aguayo for medication management. Client?s next appointment is 09/25/19. Dr. Aguayo will be retiring, and client is currently looking into finding a new psychiatrist. Client is recommended to follow up with [facility] for outpatient therapy. Client?s next appointment is 10/04/19 with Baylee Benson. Client has been provided with resources for [facility] to promote social activity. Discharge Handout: Complete Discharge Handout with client on aftercare options and continuity of care.
--- NOTE | 2019-09-14 20:00 | BH.SGPN.GN ---
Behaviors/Verbalizations/Mental Status: [] Eye contact is good. Motor activity is appropriate. Appearance is neat. Speech is Appropriate. Mood is euthymic. Affect is full. Thoughts are linear and logical. No evidence of psychosis. Client Response/Progress/Benefit: [] Pt was an active participant in group activity and discussion. Attentive during psycho-education. Worked with peers to define coping skills which included; skills to use to get us through difficult times, techniques to manage emotions, and reactions to lessen an emotional state. Group also worked together to identify how we learn our coping skills through up-bringing, habits, watching our support, trial/error, TV, and counseling. Group discussed that not all coping skills are healthy and identified common unhealthy coping skills such as; isolating, avoidance, substance abuse, using anger as a release, self-harm, reassurance-seeking, sleep, eating, and negative self-talk. Pt participated in group activity with peers. After the group they related the activity to coping skills stating that when developing coping skills it is important to have both internal and external coping skills to help. Pt benefited from increased insight and education on healthy vs unhealthy coping and internal vs external coping skills. Narrative Note: []
== END 2019-09-22 23:59 ==
LOC: BHIOP 09:00
PROVIDERS: Family Provider Family Medicine; PCP Family Medicine; Referring Provider Psychiatry & Neurology Psychiatry; Visit Provider Psychiatry & Neurology Psychiatry
DX: F25.0 Schizoaffective disorder, bipolar type (principal); F41.8 Other specified anxiety disorders; E03.9 Hypothyroidism, unspecified; Z79.899 Other long term (current) drug therapy
CPT/HCPCS: H0035; 90834; 90837; 90853

== ENCOUNTER 2021-03-05 09:03 | Day surgery (SDC) | payer OTHER, SELFPAY ==
--- NOTE | 2021-02-26 08:41 | PCM.HP.BLA ---
History and Physical Date of Admission: 03/05/21 Expand AllCollapse All? Expand All by Default Hide copied text Hover for details Pre-Op History and Physical ? HPI: The patient is a 31 year old female presenting for pre-operative visit. She is scheduled for , for H/o T incision on uterus- delivery with lower uterine segment fibroid? on 03/03/21.? ?Procedure discussed along with risks, benefits and complications.? Other alternatives discussed for management. Consent form signed? Yes.? PAST MEDICAL HISTORY PAST MEDICAL HISTORY DiagnosisDate ?Anemia in pregnancy12/30/2020 ?HELLP syndrome? ?Pre-eclampsia affecting , antepartum07/14/2017 ? PAST SURGICAL HISTORY PAST SURGICAL HISTORY ProcedureLateralityDate ? SECTION HX?07/14/2017 ?T incision on uterus - 29.5 wks? ?EXCISION OF LINGUAL TONSIL?1991 ?wisdom teeth extraction?2003 ? ? ? CURRENT MEDICATIONS Current Outpatient Medications MedicationSigDispenseRefill ?labetalol (TRANDATE) 200 mg tabletTake 1 tablet by mouth three times daily.180 tablet1 ?ferrous sulfate 325 mg (65 mg iron) tabletTake 325 mg by mouth twice daily with meals.?? ?ondansetron (ZOFRAN) 4 mg tabletTake 1 tablet by mouth every 8 hours as needed for Nausea/Vomiting. (Patient not taking: Reported on 11/07/2020 )30 tablet1 ? Rfkwtwch-Dw-Hhl-Fe-FA ( VITAMIN) tabTake 1 tablet by mouth.?? ?aspirin, enteric coated (ASPIRIN, ENTERIC COATED) 81 mg EC tabletTake 81 mg by mouth once daily.?? ?pyridoxine, vitamin B6, (VITAMIN B6) 100 mg tabletTake 100 mg by mouth once daily.?? ? Current Facility-Administered Medications MedicationDoseRouteFrequencyProviderLast RateLast Admin ?betamethasone acetate-betamethasone sodium phosphate 12 mg injection (CELESTONE)?12 mgINTRAMUSCULARq 24 HRDeidre Tiarra Traore MD?12 mg at 02/25/21 1139 ? ? ALLERGIES: Patient has no known allergies. ? PERSONAL HISTORY:? SOCIAL HISTORY Social History ? Tobacco Use ?Smoking status:Never Smoker ?Smokeless tobacco:Never Used Vaping Use ?Vaping Use:Never used Substance Use Topics ?Alcohol use:No ?Drug use:No ?? ? FAMILY HISTORY:? FAMILY HISTORY FAMILY HISTORY? ProblemRelationAge of Onset ?ThyroidMother? hypo ?NoneFather? ?No Known ProblemsBrother? ?HeartMaternal Grandfather? ?Kidney DiseaseMaternal Grandfather? ?CancerMaternal Grandmother? breast? ?No Known ProblemsPaternal Grandmother? ?No Known ProblemsPaternal Grandfather? ? ? REVIEW OF SYMPTOMS: negative except as noted above ? PHYSICAL EXAMINATION: ? VITALS: Blood pressure 127/91, weight 195 lb (88.5 kg), last menstrual period 06/20/2020, currently . ? GENERAL:? The patient is well nourished, well hydrated in no acute distress.? , The patient is oriented to time, place, and person. NECK: full range of motion ABD: gravid, non tender? GENITALIA: Normal external genitalia, no lesions? ? IMPRESSION: with EDC 03/28/21 scheduled for repeat c/s at 36+ weeks for h/o T incision on uterus ? PLAN:? ?[place] today and tomorrow - due to planned delivery ? Pt has been counseled on risks/benefits and alternatives of surgery including but not limited to anesthesia, bleeding, infection, injury to pelvic structures including bowel, bladder, ureters and vessels.? Pt wishes to proceed with surgery at this time. Reviewed possible that the lower uterine segment fibroid may interfere with my incision and subsequent delivery of the fetus with a low transverse incision at that point counseled her that I may need to make a classical incision for delivery.? We discussed possible risk for blood transfusion if bleeding occurs.? Reviewed possible special care nursery for delivery. Continue labetalol 200 mg 3 times daily for chronic hypertension.? After delivery will follow-up with PCP for medication adjustment as needed. ? ? I have reviewed and updated past medical and surgical history, medications and allergies? Joselin Traore MD
--- NOTE | 2021-02-26 08:47 | HP.PCM_ITS ---
History and Physical Date of Admission: 03/05/21 Expand AllCollapse All? Expand All by Default Hide copied text Hover for details Pre-Op History and Physical ? HPI: The patient is a 50 year old female presenting for discussion regarding KENAN pap. 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 ? She is scheduled for Hysteroscopy D&C, ECC for KENAN pap inconclusive EMB and ECC done in office? on 03/05/21.? ?Procedure discussed along with risks, benefits and complications.? Other alternatives discussed for management. Consent form signed? Yes.? PAST MEDICAL HISTORY PAST MEDICAL HISTORY DiagnosisDate ?Acquired hypothyroidism06/25/2019 ?Bipolar disorder (HCC)06/21/2019 ?Sees Dr. Stanley ?Dyslipidemia06/25/2019 ?GIOVANNI (obstructive sleep apnea)01/10/2020 ?Seeing Sleep [facility]. ?Plantar fasciitis, right06/21/2019 ?RLS (restless legs syndrome)11/15/2019 ?Schizoaffective disorder (HCC)? ?Sebaceous cyst06/21/2019 ?left upper iner thigh ?Smoker06/21/2019 ?Started age 7 up to 1 PPD ?Well adult exam06/21/2019 ?last done: 06/21/2019 ? PAST SURGICAL HISTORY PAST SURGICAL HISTORY ProcedureLateralityDate ?LIGATE FALLOPIAN TUBE ? ?Tubal ligation ?PAST SURGICAL HISTORY OF ? ?GANGLION CYST REMOVED FROM Lt FOOT ?PAST SURGICAL HISTORY OF ? ?WISDOM AND MOLAR EXTRACTIONS ? ? ? CURRENT MEDICATIONS Current Outpatient Medications MedicationSigDispenseRefill ?CPAPCPAP mask - please perform fitting for F30 or F30i. Heated tubing (EDDY). Lifetime supplies. G47.33 OSA1 [id number] ?levothyroxine (SYNTHROID) 100 mcg tabletTake 1 tablet by mouth daily before breakfast.90 tablet1 ?benztropine (COGENTIN) 1 mg tabletTake 1 mg by mouth once daily. per Dr. Aguayo ? ? ?clonazePAM (KLONOPIN) 1 mg tabletTake 1 tablet by mouth once daily. Per Dr. Aguayo -takes half or 1 tab daily prn ? ?multivitamin tabletTake 1 tablet by mouth once daily. ? ?Cholecalciferol, Vitamin D3, (VITAMIN D) 25 mcg (1,000 unit) capTake 3 capsules by mouth once daily. ? ?vitamin E, dl, acetate, 200 unit capsuleTake 400 Units by mouth once daily. ? ?ARIPiprazole (ABILIFY) 10 mg tabletTake 2 tablets by mouth once daily. Per Dr. Sommerh30 tablet0 ?CPAPChin Strap, mask(pt pref), chin strap, heated tubing & humidity, filters. Lifetime supplies. Dx: G47.33.1 Device0 ?omega-3s/dha/epa/fish oil/D3 (VITAMIN-D + OMEGA-3 ORAL)Take by mouth. ? ?vitamin B complex (B COMPLEX 1 ORAL)Take by mouth. ? ?Ascorbic Acid (VITAMIN C) 1,000 mg tabletTake 1,000 mg by mouth once daily. ? ?venlafaxine ER (EFFEXOR XR) 150 mg 24 hr capsuleTake 1 capsule by mouth once daily. Per Dr. Aguayo 0 ?ibuprofen (MOTRIN) 600 mg tabletTake 1 tablet by mouth every 6 hours as needed for Pain.30 tablet0 ? No current facility-administered medications for this visit. ? ? ALLERGIES: Patient has no known allergies. ? PERSONAL HISTORY:? SOCIAL HISTORY Social History ? Tobacco Use ?Smoking status:Former Smoker ? Packs/day:1.00 ? Years:27.00 ? Pack years:27.00 ? Types:Cigarettes ? Quit date:04/24/2020 ? Years since quittin.8 ?Smokeless tobacco:Never Used Vaping Use ?Vaping Use:Never used Substance Use Topics ?Alcohol use:Not Currently ? Comment: SOCIALLY ?Drug use:No ?? ? FAMILY HISTORY:? FAMILY HISTORY FAMILY HISTORY? ProblemRelationAge of Onset ?Breast CancerMother? ?StrokeMother? TIA ?ArthritisMother? knee replaced, hip ?other (GLAUCOMA)Mother? ?HypertensionFather? ?Bipolar disorderFather? ?DiabetesPaternal Grandmother? ?Alzheimer's DiseaseNo Family History? ?Colon CancerNo Family History? ?Prostate CancerNo Family History? ?Ovarian cancerNo Family History? ?Uterine CancerNo Family History? ?Coronary Artery DiseaseNo Family History? ?HyperlipidemiaNo Family History? ?Kidney DiseaseNo Family History? ?SeizuresNo Family History? ?ThyroidNo Family History? ? ? REVIEW OF SYMPTOMS: negative except as noted above ? PHYSICAL EXAMINATION: ? VITALS: Blood pressure 106/64, height 5' 6 (1.676 m), weight 199 lb (90.3 kg), last menstrual period 12/30/2020. ? GENERAL:? The patient is well nourished, well hydrated in no acute distress.? , The patient is oriented to time, place, and person. NECK: full range of motion? GENITALIA: deferred? ? IMPRESSION: KENAN pap with inconclusive in office EMB and ECC ? PLAN:? ?Hysteroscopy, D&C, ECC in OR ? Pt has been counseled on risks/benefits and alternatives of surgery including but not limited to anesthesia, bleeding, infection, uterine perforation with subsequent injury to pelvic structures including bowel, bladder, ureters and vessels.? Pt wishes to proceed with surgery at this time. ? Pre op Instructions reviewed POST OP motrin ordered ? ? I have reviewed and updated past medical and surgical history, medications and allergies? Joselin Traore MD Office Visit on 02/24/2021 Office Visit on 02/24/2021 Note shared with patient Assessment & Plan Assessment/Plan (1) Atypical glandular cells of undetermined significance (KENAN) on cervical Pap smear: PLAN: Hysteroscopy, D&C, ECC.
[2021-03-04 10:35] LABS: Absolute Lymphocyte Count 2.98 X10^3/uL (0.83-4.51); Absolute Neutrophil Count 2.6 X10^3/uL (2.0-7.7); Basophil# 0.03 X10^3/uL; Basophil% 0.5 % (0-1); Eosinophil# 0.11 X10^3/uL; Eosinophils% 1.8 % (0-5); Hematocrit 39.7 % (37-47); Lymphocyte # 2.98 X10^3/ul (0.83-4.51); Lymphocyte % 47.9 % (19-41); Mean Corp Hgb Conc 32.7 g/dL (32-36); Mean Corpuscular Hgb 29.4 pg (27.0-32.0); Mean Corpuscular Volume 89.8 fL (81-99); Mean Platelet Vol. 9.5 fl (6.2-12.0); NRBC Flagged by Analyzer 0 % (0-5); Neutrophil # 2.59 X10^3/uL (2.7-7.7); Neutrophil % 41.6 % (47-70); Platelet Count 278 K/mm3 (150-450); RBC Distribution Width CV 12.2 % (11.6-14.6); RBC Distribution Width SD 40.3 fl (35.1-43.9); Red Blood Count 4.42 M/mm3 (4.2-5.4); White Blood Count 6.2 K/mm3 (4.4-11.0)
[2021-03-04 10:58] LABS: Anion Gap 0 (5-15); BUN 14 mg/dL (7-18); BUN/Creat Ratio 17.9 RATIO (10-20); Calcium,Total 9.5 mg/dL (8.5-10.1); Chloride 109 mmol/L (98-107); Creatinine, Serum 0.78 mg/dL (0.55-1.02); EST Glomerular Filtration Rate 82 mL/min (>60); Est Glom Filt Rate - Afr Amer 100 mL/min (>60); Glucose 86 mg/dL (74-106); Potassium 4.1 mmol/L (3.5-5.1); Sodium Level 139 mmol/L (136-145)
[2021-03-05 09:30] VITALS: BP 99/52; PULSE 64; RESP 18; TEMP 36.3; O2SAT 96; BMI 32.8
[2021-03-05] MEDS: Lactated Ringers 1,000 ML 100 ML IV (09:30)
--- NOTE | 2021-03-05 10:20 | EX.PCM.DISCH ---
Discharge Instructions Procedure D&C Diet Discharge Diet: No restrictions Activity Discharge Activity: Return to Normal Activity May resume sexual activity in: 1 week Dressing / Incision Call your doctor if you observe: Fever of 101 or Higher, Inability to urinate, Using more than one pad per hour and Uncontrolled pain Follow Up Care Please Follow Up With: Joselin Ibanez MD When: 1-2 weeks post OP if you need an appointment please call [phone] Test Results: Test results from this visit will be discussed in further detail at your follow-up appointment, if applicable. Discharge Plan Admission Attending Provider: Joselin Ibanez Primary Care Provider: Suraj Rashid Discharge Orders/Prescriptions Prescriptions: No Action clonazepam 1 MG tablet 0.5 mg PO DAILY PRN PRN (Reason: mood) RF: 0 aripiprazole 20 MG tablet 20 mg PO DAILY RF: 0 venlafaxine 150 MG capsule 150 mg PO BREAKFAST RF: 0 benztropine 2 MG tablet 1 mg PO DAILY RF: 0 multivitamin Tablet 1 tab PO DAILY RF: 0 penicillin V potassium 500 mg tablet 500 mg PO DAILY RF: 0 levothyroxine 100 mcg Tablet 100 mcg PO DAILY RF: 0 ascorbic acid (vitamin C) [Vitamin C] 500 mg Tablet,Chewable 500 mg PO DAILY RF: 0 vitamin E 400 unit Tablet 400 unit PO DAILY RF: 0 ibuprofen 600 mg tablet 600 mg PO DAILY RF: 0 vitamin B complex Capsule 1 cap PO DAILY RF: 0 [place] 3 Fish Oil Capsule 1,000 mg PO DAILY RF: 0 cholecalciferol (vitamin D3) [Vitamin D3] 25 mcg (1,000 unit) Tablet 75 mcg PO DAILY RF: 0
--- NOTE | 2021-03-05 10:32 | PCM.OPRPT ---
Problems Associated Problem List Diagnoses (1) Atypical glandular cells of undetermined significance (KENAN) on cervical Pap smear: Report of Operation Date of Procedure: 03/05/21 Pre-Operative Diagnosis: KENAN pap Post-Operative Diagnosis: same Surgery/Procedure Performed:: Hysteroscopy, D&C, ECC Description of Surgical Findings:: START TIME: 1045 END TIME: 1050 night shift supervisor: None Type of Anesthesia: MAC Special Medications: none Specimen's removed: Endometrial curettings, Endocervical Curettings Drains: none Estimated Blood Loss (mL): <5cc Fluids Replaced: 300cc Description of Procedure: Informed consent was obtained the patient was taken the operating room she was placed in supine position. She was given anesthesia. She was then placed in the [facility] where she was prepped and draped in the normal sterile fashion. At this time the weighted speculum was placed in the posterior fornix of vagina. Single-tooth tenaculum was used to gently grasp the anterior lip the cervix. At this time the uterine cavity was sounded to approximately 7cm. Gentle dilatation was performed once adequate dilatation of the cervix was achieved the hysteroscope using normal saline as a distention medium was placed. Tubal ostia visualized endometrium Atrphic, no lesions. This time hysteroscopy was complete. ECC performed - scan tissue. Sharp curettage performed on all aspects of endometrium- yaniv tissue. Tissue will be sent to pathology for evaluation. Tenaculum removed. Good hemostasis. Instrument, lap count correct x 2. Vaginal Sweep was negative. Grafts/Implants Used: none Complications none Admit VTE Documentation VTE Present on Admission: Yes VTE Mechan Device Prophylaxis: SCD's VTE Pharm Prophylaxis ordered?: No Reason prophylaxis not ordered:: Procedure Not Indicated
--- NOTE | 2021-03-05 10:45 | EMB_PTH ---
PATIENT: ABAD SORIANO LOC: [facility] [place] U#:[id number] AGE/SX: 50/F ROOM: RE03/05/[address]: Dr. Joselin Ibanez, MDDOB: 1970 BED: DIS: 03/05/2021 SPEC #: [id number] RECD: 03/05/21 13:20 STATUS: ASHLEY ATA #: [id number] MIRNA: 03/05/21 10:[address]: Joselin Ibanez DEPT: SURGICAL PATHOLOGY RECD BY: Letitia Winston ENTERED: 03/05/21 13:56 SP TYPE: ENDOM BX/C JUNIOR DR: Dr. Suraj Rashid MD Tissues: A - Endometrium, NOS B - Endocervical Procedures: Surgery Specimen Level IV HEADER OPERATION: Hysteroscopy, D & C, endocervical curettage PRE-OP DIAGNOSIS: Atypical glandular cells of undetermined significance (KENAN) on cervical pap smear TISSUE SUBMITTED: A ? Endocervical curettings, B ? Endometrial curettings MICROSCOPIC DIAGNOSIS A. Endocervical curettings: Fragments of benign ecto- and endocervical epithelium. Fragments of fibromuscular tissue with procedure related artifacts may represent lower uterine segment tissue. Negative for dysplasia. B Endometrial curettings: Strips of benign endometrial epithelium with superficial fragments of benign endometrial tissue, consistent with atrophic endometrium. Fragments of benign ectocervical epithelium. Fragments of fibromuscular tissue with procedure related artifacts. Negative for dysplasia. SJ:claritza 03/06/2021 COMMENT Clinical correlation and appropriate follow up are necessary. Case has been reviewed in consultation with Dr. Rdz who concurs with the above diagnosis. IDC:AM MICROSCOPIC DESCRIPTION Slides are reviewed. GROSS DESCRIPTION A - Received in fixative is one container labeled with the patient's name and designated endocervical curettings. The specimen consists of scant fragments of hemorrhagic soft tissue that in aggregate measure 0.5 x 0.1 x 0.1 cm. The specimen is totally submitted in one cassette. B - Received in fixative is one container labeled with the patient's name and designated endometrial curettings. The specimen consists of multiple fragments of hemorrhagic soft tissue that in aggregate measure 1.5 x 0.5 x 0.1 cm. The specimen is totally submitted in one cassette. / SJ:rg 03/05/21 TC:3 CPT: 06515 x2
[2021-03-05 11:13] VITALS: BP 104/69; BP 99/52; PULSE 74; RESP 16; TEMP 36.2; O2SAT 100
[2021-03-05 11:15] VITALS: BP 96/72; BP 99/52; PULSE 73; RESP 16; O2SAT 100
[2021-03-05 11:30] VITALS: BP 100/61; BP 99/52; PULSE 68; RESP 16; O2SAT 98
[2021-03-05 11:45] VITALS: BP 102/71; BP 99/52; PULSE 68; RESP 16; TEMP 36.6; O2SAT 99
[2021-03-05 12:27] VITALS: BP 104/71; BP 99/52; PULSE 74; RESP 16; TEMP 36.7; O2SAT 98
== END 2021-03-05 12:30 | disposition home or self-care (01) ==
LOC: SDC 09:03 → AC 09:04
PROVIDERS: PCP Family Medicine; Referring Provider Obstetrics & Gynecology; Visit Provider Obstetrics & Gynecology
PROC: 0UDB8ZZ Extraction of Endometrium, Via Natural or Artificial Opening Endoscopic (ICD-10-PCS; CPT 58558; principal; 2021-03-05 10:35)
DX: R87.619 Unspecified abnormal cytological findings in specimens from cervix uteri (principal); F41.9 Anxiety disorder, unspecified; F31.9 Bipolar disorder, unspecified; E03.9 Hypothyroidism, unspecified; G47.30 Sleep apnea, unspecified; Z87.891 Personal history of nicotine dependence; Z79.899 Other long term (current) drug therapy; Z20.822 Contact with and (suspected) exposure to COVID-19
CPT/HCPCS: 00952; 58558; 36415; 80048; 85025; 87426; 88305; C9803; J7120

== ENCOUNTER 2022-09-24 14:26 | Emergency (ER) | payer BC, SELFPAY ==
[2022-09-24 14:27] VITALS: BP 119/69; PULSE 94; RESP 18; TEMP 36; O2SAT 98; BMI 30.8
--- NOTE | 2022-09-24 14:36 | US_ITS ---
STUDY: ABDOMINAL ULTRASOUND - RIGHT UPPER QUADRANT REASON FOR VISIT: Female, 51 years old . One-day history of right upper quadrant pain. TECHNIQUE: Ultrasound evaluation of the right upper quadrant was performed with real-time and static vasquez-scale imaging. TECHNICAL QUALITY: Adequate. COMPARISON: None. FINDINGS: Liver: The liver measures 16.7 cm. There is increased echogenicity consistent with fatty infiltration. The bile ducts are within normal limits. There is hepatic color flow. The direction of portal flow is hepatopetal. There is a 1.6 x 1.5 sinal 1.2 cm hyperechoic nodule in the left lobe suggestive of a small hemangioma. Gallbladder: Normal distended gallbladder. The gallbladder wall measures 1.7 mm. There is a negative sonographic Winters''s sign. There is no pericholecystic fluid. There are no gallstones. Common Bile Duct (C.B.D.): The common bile duct measures 3.7 mm. Pancreas: Normal size of the head, body and tail of the pancreas. There is normal echogenicity of the pancreas. There is no demonstrated pancreatic mass or cyst. Right Kidney: Normal size of the right kidney. The right kidney measures 10.9 cm x 4.8 cm x 4 cm. Normal renal cortex. The right cortex measures 1.3 cm. There is no demonstrated renal mass or cyst. There is no right hydronephrosis. US/Gallbladder IMPRESSION: Fatty infiltration of the liver. Findings suggestive of a small hemangioma in the left lobe of the liver. Electronically Signed: Eder Bain MD at 15:34 EST ,
--- NOTE | 2022-09-24 14:37 | ED.VIS.GI ---
HPI HPI - GI History of Present Illness Chief Complaint: Abd Pain Narrative Narrative: 51-year-old female presenting with right upper quadrant pain. She states this started just over an hour ago after eating a tuna melt. She states that the pain has come and gone several times and describes it as sharp. It does not radiate around her back. She states she did not vomit. She was otherwise healthy prior to this. She has no history of gallbladder disease. [facility] Medical History Alcohol use Anxiety Bipolar disorder Bruises easily Bruising Chest pain CPAP (continuous positive airway pressure) dependence Depression Former smoker Heartburn History of IBS Hypothyroidism Restless legs Schizophrenia Skin tag Sleep apnea Wears glasses Wears hearing aid in both ears Home Medications aripiprazole 20 mg tablet 20 mg PO DAILY mood 08/01/19 [History Last Taken Unknown] clonazepam 1 mg tablet 0.5 mg PO DAILY PRN PRN mood 08/01/19 [History Last Taken Unknown] benztropine 2 mg tablet 1 mg PO DAILY mood 08/23/19 [History Last Taken Unknown] venlafaxine 150 mg capsule,extended release 24 hr 150 mg PO BREAKFAST 08/23/19 [History Last Taken Unknown] ascorbic acid (vitamin C) 500 mg chewable tablet (Vitamin C) 500 mg PO DAILY supplement 02/26/21 [History Last Taken Unknown] cholecalciferol (vitamin D3) 25 mcg (1,000 unit) tablet (Vitamin D3) 75 mcg PO DAILY supplement 02/26/21 [History Last Taken Unknown] ibuprofen 600 mg tablet 600 mg PO DAILY prior to surgery 02/26/21 [History Last Taken Unknown] levothyroxine 100 mcg tablet 100 mcg PO DAILY thyroid 02/26/21 [History Last Taken 03/05/21 07:00] multivitamin 1 tab PO DAILY supplement 02/26/21 [History Last Taken Unknown] omega-3 fatty acids 1,000 mg PO DAILY supplement 02/26/21 [History Last Taken Unknown] penicillin V potassium 500 mg tablet 500 mg PO DAILY prior to oral surgery 02/26/21 [History Last Taken Unknown] vitamin B complex 1 cap PO DAILY supplement 02/26/21 [History Last Taken Unknown] vitamin E 400 unit tablet 400 unit PO DAILY supplement 02/26/21 [History Last Taken Unknown] Allergy/AdvReac Type Severity Reaction Status Date / Time No Known Allergies Allergy Verified 09/24/22 14:29 Surgical History History of foot surgery History of oral surgery History of tubal ligation Social History Smoking Status: Former smoker ROS ROS ED Constitutional Constitutional ED: Denies chills or fever(s) ENT ENT ED: Denies rhinorrhea or sore throat Cardiovascular Cardiovascular: Denies chest pain or palpitations Respiratory/Chest Respiratory/Chest: Denies cough or dyspnea Gastrointestinal Gastrointestinal: Reports abdominal pain; Denies vomiting Genitourinary Genitourinary ED: Denies dysuria or hematuria Musculoskeletal Musculoskeletal: Denies arthralgias or back pain Integumentary Denies abscess or Abrasions Neurologic Neurologic: Denies headache(s) Psychiatric Psychiatric: Denies anxiety or depression EXAM Physical Exam Const Vital Signs: 09/24/22 14:27 09/24/22 16:30 Temperature 96.8 F L Temperature Source Temporal Pulse Rate 94 Respiratory Rate 18 18 Blood Pressure 119/69 Blood Pressure Mean 85 Pulse Ox 98 Oxygen Delivery Method Room Air Room Air Positive well nourished General Appearance ED: NAD HEENT Reports moist mucous membranes atraumatic Eyes PERRL and EOMs intact bilaterally Resp normal respiratory effort Auscultation: Negative for rales, rhonchi or wheezes Cardio regular rate and regular rhythm GI non-tender and non-distended Back/Spine no CVA tenderness Neuro CN's II-XII intact bilaterally Sensorium / Orientation: alert, oriented to person, oriented to place and oriented to time Motor Exam: strength 5/5 throughout Psych mental status grossly normal Skin no wounds MDM MDM MDM Narrative Medical decision making narrative: Patient presented with right upper quadrant pain after eating today. She states the pain has resolved. She did not require any analgesia or antiemetics. CBC and CMP are unremarkable. Lipase is normal. Urinalysis is negative for infection. Right upper quadrant ultra shows fatty liver and a small hemangioma. Otherwise a gallbladder ultrasound is negative. Patient will be given follow-up with general surgery. Return precautions were discussed. Impression: 1. Right upper quadrant pain Lab Data Attestation: I reviewed the patient's lab results. Labs: Laboratory Results - last 24 hr 09/24/22 09/24/2209/24/22 14:41 14:41 15:32 WBC 7.0 RBC 4.50 Hgb 13.9 Hct 39.6 MCV 88.0 MCH 30.9 MCHC 35.1 RDW Std Deviation 38.2 RDW Coeff of Yumi 11.9 Plt Count 236 MPV 10.0 Immature Gran % (Auto) 0.100 Neut % (Auto) 49.0 Lymph % (Auto) 43.3 H [place] % (Auto) 5.9 Eos % (Auto) 1.4 Baso % (Auto) 0.3 Absolute Neuts (auto) 3.4 Absolute Lymphs (auto) 3.02 Nucleated RBC % 0 Sodium 143 Potassium 3.8 Chloride 111 H Carbon Dioxide 27.0 Anion Gap 5 BUN 17 Creatinine 0.95 Estim Creat Clear Calc 66.60 Est GFR (MDRD) Af Amer 79 Est GFR (MDRD) Non-Af 65 BUN/Creatinine Ratio 17.9 Glucose 110 H Calcium 9.7 Total Bilirubin 0.40 AST 18 ALT 29 Alkaline Phosphatase 67 Total Protein 7.3 Albumin 3.9 Globulin 3.4 Albumin/Globulin Ratio 1.1 Lipase 107 Urine Color Yellow Urine Clarity Sl. Cloudy Urine pH 6.0 Ur Specific [place] 1.025 Urine Protein 30 H Urine Glucose (UA) Normal Urine Ketones Negative Urine Occult Blood Negative Urine Nitrite Negative Urine Bilirubin Negative Urine Urobilinogen Normal Ur Leukocyte Esterase 100 H Urine RBC 0 SEEN Urine WBC 0-5 SEEN Ur Squamous Epith Cells 0-5 SEEN Urine Bacteria RARE Urine Mucus 0 SEEN Radiography Diagnostic Testing: Clinical Impression(s) from Imaging Studies Gallbladder Ultrasound 09/24/22 14:36 IMPRESSION: Fatty infiltration of the liver. Findings suggestive of a small hemangioma in the left lobe of the liver. Electronically Signed: Eder Bain MD at 15:34 EST , Discharge Plan Triage Chief Complaint: Abd Pain ED Provider: Thomas Day Dx/Rx/DC Orders Instructions: ED Abdominal Pain Gallstone Poss Prescriptions: No Action clonazepam 1 MG tablet 0.5 mg PO DAILY PRN PRN (Reason: mood) aripiprazole 20 MG tablet 20 mg PO DAILY venlafaxine 150 MG capsule 150 mg PO BREAKFAST benztropine 2 MG tablet 1 mg PO DAILY multivitamin Tablet 1 tab PO DAILY penicillin V potassium 500 mg tablet 500 mg PO DAILY Label Comments: take 1 tablet by mouth every 6 hours until finished (START 1 DAY PRE-OP) levothyroxine 100 mcg Tablet 100 mcg PO DAILY ascorbic acid (vitamin C) [Vitamin C] 500 mg Tablet,Chewable 500 mg PO DAILY vitamin E 400 unit Tablet 400 unit PO DAILY ibuprofen 600 mg tablet 600 mg PO DAILY Label Comments: take 1 tablet by mouth every 6 hours if needed for pain vitamin B complex Capsule 1 cap PO DAILY [place] 3 Fish Oil Capsule 1,000 mg PO DAILY cholecalciferol (vitamin D3) [Vitamin D3] 25 mcg (1,000 unit) Tablet 75 mcg PO DAILY Primary Care Provider: Suraj Rashid Referrals: Suraj Rashid MD [Primary Care Provider] - Jenna Gudino MD [Med Staff - Active Staff] - Disposition Disposition: Home, Self Care
[2022-09-24 14:49] LABS: Absolute Lymphocyte Count 3.02 X10^3/uL (0.83-4.51); Absolute Neutrophil Count 3.4 X10^3/uL (2.0-7.7); Basophil# 0.02 X10^3/uL; Basophil% 0.3 % (0-1); Eosinophils% 1.4 % (0-5); Hematocrit 39.6 % (37-47); Hemoglobin 13.9 g/dL (12.0-15.0); Lymphocyte # 3.02 X10^3/ul (0.83-4.51); Lymphocyte % 43.3 % (19-41); Mean Corp Hgb Conc 35.1 g/dL (32-36); Mean Corpuscular Hgb 30.9 pg (27.0-32.0); Monocyte# 0.41 X10^3/uL; Monocyte% 5.9 % (0-10); NRBC Flagged by Analyzer 0 % (0-5); Neutrophil # 3.42 X10^3/uL (2.7-7.7); Platelet Count 236 K/mm3 (150-450); RBC Distribution Width CV 11.9 % (11.6-14.6); RBC Distribution Width SD 38.2 fl (35.1-43.9)
[2022-09-24 15:05] LABS: ALB/GLOB Ratio 1.1 RATIO (0.9-2.4); AST(SGOT) 18 U/L (15-37); Alanine Aminotransfer ALT/SGPT 29 U/L (13-56); Albumin, Serum 3.9 g/dL (3.2-5.0); Alkaline Phosphatase 67 U/L (45-117); Anion Gap 5 (5-15); BUN 17 mg/dL (7-18); BUN/Creat Ratio 17.9 RATIO (10-20); Calcium,Total 9.7 mg/dL (8.5-10.1); Chloride 111 mmol/L (98-107); Creatinine, Serum 0.95 mg/dL (0.55-1.02); EST Glomerular Filtration Rate 65 mL/min (>60); Est Glom Filt Rate - Afr Amer 79 mL/min (>60); Globulin 3.4 g/dL (2.2-4.2); Glucose 110 mg/dL (74-106); Lipase 107 U/L (73-393); Potassium 3.8 mmol/L (3.5-5.1); Protein, Total 7.3 g/dL (6.4-8.2); Sodium Level 143 mmol/L (136-145)
[2022-09-24 15:47] LABS: Mucous, Urine 0 SEEN /hpf (<or=2+); Red Blood Cells-Urine 0 SEEN /hpf (0-5)
[2022-09-24 15:55] LABS: Color, Urine Yellow (Yellow); Glucose, Dipstick Normal (Normal); Ketone-Dipstick Negative (Negative); Leukocyte Esterase-Dipstick 100 /ul (Negative); Nitrite-Dipstick Negative (Negative); Occult Blood-Urine Negative /ul (Negative); Protein-Dipstick 30 mg/dl (Negative); Specific Gravity, Urine 1.025 (1.002-1.030); Urine Bilirubin Dipstick Negative (Negative); Urine Clarity Sl. Cloudy (Clear); Urine Urobilinogen Normal (Normal)
[2022-09-24 16:05] LABS: Bacteria RARE /hpf (None Seen); Squamous Epithelial Cells - UA 0-5 SEEN /hpf (5-10)
[2022-09-24 16:06] LABS: White Blood Cells 0-5 SEEN /hpf (0-5)
[2022-09-24 16:30] VITALS: RESP 18
== END 2022-09-24 17:24 | disposition home or self-care (01) ==
PROVIDERS: Emergency Provider Student in an Organized Health Care Education/Training Program; PCP Family Medicine; Visit Provider Student in an Organized Health Care Education/Training Program
DX: R10.11 Right upper quadrant pain (principal); K76.0 Fatty (change of) liver, not elsewhere classified; D18.03 Hemangioma of intra-abdominal structures; Z87.891 Personal history of nicotine dependence
CPT/HCPCS: 76705; 80053; 81001; 83690; 85025; 99283; A4216

== ENCOUNTER → 2024-07-11 | Outpatient (CLI) | payer BC, SELFPAY ==
[2024-07-11 12:35] LABS: Lithium < 0.20 mmol/L (0.60-1.20)
[2024-07-11 12:52] LABS: ALB/GLOB Ratio 1.2 RATIO (0.9-2.4); AST(SGOT) 12 U/L (15-37); Alanine Aminotransfer ALT/SGPT 24 U/L (13-56); Albumin, Serum 3.9 g/dL (3.2-5.0); Alkaline Phosphatase 76 U/L (45-117); Anion Gap 6 (5-15); BUN 15 mg/dL (7-18); BUN/Creat Ratio 17.2 RATIO (10-20); Calcium,Total 9.6 mg/dL (8.5-10.1); Chloride 109 mmol/L (98-107); Cholesterol 232 mg/dL (200); Creatinine, Serum 0.87 mg/dL (0.55-1.02); EST Glomerular Filtration Rate 71 mL/min (>60); Est Glom Filt Rate - Afr Amer 86 mL/min (>60); Globulin 3.3 g/dL (2.2-4.2); Glucose 100 mg/dL (74-106); High Density Lipoprotein 61 mg/dL; Protein, Total 7.2 g/dL (6.4-8.2); Sodium Level 140 mmol/L (136-145); Triglycerides 210 mg/dL; Very Low Density Lipoprotein 42 mg/dL (5-40)
== END | disposition home or self-care (01) ==
PROVIDERS: PCP Family Medicine
DX: Z51.81 Encounter for therapeutic drug level monitoring (principal); F31.31 Bipolar disorder, current episode depressed, mild
CPT/HCPCS: 36415; 80053; 80061; 80178; 84443

== ENCOUNTER → 2024-09-14 | Outpatient (CLI) | payer BC, SELFPAY | END | disposition home or self-care (01) | LOC: LAB 13:44 | PROVIDERS: PCP Family Medicine | DX: Z79.899 Other long term (current) drug therapy (principal) | CPT/HCPCS: 36415; 80178 ==

== ENCOUNTER → 2024-11-29 | Outpatient (CLI) | payer BC, SELFPAY ==
--- NOTE | 2024-11-29 13:04 | EKG12_ITS ---
Test Reason : ELECTRO THERAPY Blood Pressure : */* mmHG Vent. Rate : 82 BPM Atrial Rate : 82 BPM P-R Int : 144 ms QRS Dur : 84 ms QT Int : 384 ms P-R-T Axes : 56 4 45 degrees QTcB Int : 448 ms Normal sinus rhythm Normal ECG Confirmed by JOANIE KEITH, JESU ([id number]), editor sound FATOU CLARK ([id number]) on 11/30/2024 7:40:40 AM Referred By: BELKIS SUMNER Confirmed By: JESU NAIR MD
[2024-11-29 14:46] LABS: Anion Gap 6 (5-15); BUN 13 mg/dL (7-18); BUN/Creat Ratio 14.4 RATIO (10-20); Calcium,Total 9.2 mg/dL (8.5-10.1); Chloride 110 mmol/L (98-107); EST Glomerular Filtration Rate 69 mL/min (>60); Est Glom Filt Rate - Afr Amer 83 mL/min (>60); Glucose 88 mg/dL (74-106); Potassium 3.8 mmol/L (3.5-5.1); Sodium Level 143 mmol/L (136-145)
== END | disposition home or self-care (01) ==
PROVIDERS: PCP Family Medicine
DX: I49.9 Cardiac arrhythmia, unspecified (principal); Z79.899 Other long term (current) drug therapy
CPT/HCPCS: 36415; 80048; 93005